=== PATIENT | female | born 1970 | race Caucasian/White ===

== ENCOUNTER 2019-02-11 09:50 | Outpatient (CLI) | payer MEDICAID, SELFPAY ==
--- NOTE | 2019-02-11 10:00 | MM_ITS ---
WS: [id number] BILATERAL DIGITAL SCREENING MAMMOGRAPHY WITH CAD CLINICAL INFORMATION: SCREENING HISTORY: Screening mammogram. No current complaints. COMPARISON: February 07, 2018 TECHNIQUE: Bilateral CC and MLO views. FINDINGS: The breasts are composed of heterogeneous fibroglandular density tissue, which can limit the detectio n of small underlying mass lesions. No suspicious mass, asymmetry, calcifications, or architectural d istortion. No evidence of malignancy. MM/[id number] IMPRESSION: BI-RADS: 1-Negative FOLLOW UP: 1 Year Follow-up Recommend return to annual screening mammography.
== END 2019-02-11 09:51 | disposition home or self-care (01) ==
LOC: RADSHAW 09:53
PROVIDERS: Family Provider Family Medicine; PCP Family Medicine; Visit Provider Family Medicine
DX: Z12.31 Encounter for screening mammogram for malignant neoplasm of breast (principal)
CPT/HCPCS: 77067

== ENCOUNTER → 2019-03-14 13:11 | Outpatient (BNVA) | payer MEDICAID, SELFPAY | PROVIDERS: Family Provider Family Medicine; PCP Family Medicine; Visit Provider Nurse Practitioner Psychiatric/Mental Health | DX: F20.0 Paranoid schizophrenia (principal); F33.1 Major depressive disorder, recurrent, moderate; F41.1 Generalized anxiety disorder; F71 Moderate intellectual disabilities | CPT/HCPCS: 99214 ==

== ENCOUNTER → 2019-05-29 07:39 | Outpatient (BNVA) | payer MEDICAID, SELFPAY | PROVIDERS: Family Provider Family Medicine; PCP Family Medicine; Visit Provider Nurse Practitioner Psychiatric/Mental Health | DX: F20.0 Paranoid schizophrenia (principal); F33.1 Major depressive disorder, recurrent, moderate; F41.1 Generalized anxiety disorder; F71 Moderate intellectual disabilities; F17.210 Nicotine dependence, cigarettes, uncomplicated; F60.3 Borderline personality disorder | CPT/HCPCS: 99214 ==

== ENCOUNTER → 2019-06-10 07:31 | Outpatient (BNVA) | payer MEDICAID, SELFPAY | PROVIDERS: Family Provider Family Medicine; PCP Family Medicine; Visit Provider Nurse Practitioner Psychiatric/Mental Health | DX: F20.0 Paranoid schizophrenia (principal); F33.1 Major depressive disorder, recurrent, moderate; F41.1 Generalized anxiety disorder; F71 Moderate intellectual disabilities | CPT/HCPCS: 99214 ==

== ENCOUNTER → 2019-06-16 07:44 | Outpatient (BNVA) | payer MEDICAID, SELFPAY | PROVIDERS: Family Provider Family Medicine; PCP Family Medicine; Visit Provider Nurse Practitioner Psychiatric/Mental Health | DX: F20.0 Paranoid schizophrenia (principal); F33.1 Major depressive disorder, recurrent, moderate; F41.1 Generalized anxiety disorder; F71 Moderate intellectual disabilities | CPT/HCPCS: 99214 ==

== ENCOUNTER → 2019-07-16 07:50 | Outpatient (BNVA) | payer MEDICAID, SELFPAY | PROVIDERS: Family Provider Family Medicine; PCP Family Medicine; Visit Provider Nurse Practitioner Psychiatric/Mental Health | DX: F20.0 Paranoid schizophrenia (principal); F33.1 Major depressive disorder, recurrent, moderate; F41.1 Generalized anxiety disorder; F71 Moderate intellectual disabilities | CPT/HCPCS: 99214 ==

== ENCOUNTER → 2019-08-25 07:41 | Outpatient (BNVA) | payer MEDICAID, SELFPAY | PROVIDERS: Family Provider Family Medicine; PCP Family Medicine; Visit Provider Nurse Practitioner Psychiatric/Mental Health | DX: F20.0 Paranoid schizophrenia (principal); F33.1 Major depressive disorder, recurrent, moderate; F41.1 Generalized anxiety disorder; F71 Moderate intellectual disabilities; F17.210 Nicotine dependence, cigarettes, uncomplicated | CPT/HCPCS: 99214 ==

== ENCOUNTER → 2019-10-03 07:46 | Outpatient (BNVA) | payer MEDICAID, SELFPAY | PROVIDERS: Family Provider Family Medicine; PCP Family Medicine; Visit Provider Nurse Practitioner Psychiatric/Mental Health | DX: F20.0 Paranoid schizophrenia (principal); F33.1 Major depressive disorder, recurrent, moderate; F41.1 Generalized anxiety disorder; F71 Moderate intellectual disabilities; F33.2 Major depressive disorder, recurrent severe without psychotic features | CPT/HCPCS: 99213 ==

== ENCOUNTER → 2019-11-07 08:13 | Outpatient (BNVA) | payer MEDICAID, SELFPAY | PROVIDERS: Family Provider Family Medicine; PCP Family Medicine; Visit Provider Nurse Practitioner Psychiatric/Mental Health | DX: F20.0 Paranoid schizophrenia (principal); F33.1 Major depressive disorder, recurrent, moderate; F41.1 Generalized anxiety disorder; F71 Moderate intellectual disabilities | CPT/HCPCS: 99214 ==

== ENCOUNTER → 2019-11-27 08:15 | Outpatient (BNVA) | payer MEDICAID, SELFPAY | PROVIDERS: Family Provider Family Medicine; PCP Family Medicine; Visit Provider Nurse Practitioner Psychiatric/Mental Health | DX: F20.0 Paranoid schizophrenia (principal); F33.1 Major depressive disorder, recurrent, moderate; F41.1 Generalized anxiety disorder; F71 Moderate intellectual disabilities | CPT/HCPCS: 99214 ==

== ENCOUNTER → 2020-01-22 08:16 | Outpatient (BNVA) | payer MEDICAID, SELFPAY | PROVIDERS: Family Provider Family Medicine; PCP Family Medicine; Visit Provider Nurse Practitioner Psychiatric/Mental Health | DX: F20.0 Paranoid schizophrenia (principal); F33.1 Major depressive disorder, recurrent, moderate; F41.1 Generalized anxiety disorder; F71 Moderate intellectual disabilities | CPT/HCPCS: 99214 ==

== ENCOUNTER → 2020-03-02 07:40 | Outpatient (BNVA) | payer MEDICAID, SELFPAY | PROVIDERS: Family Provider Family Medicine; PCP Family Medicine; Visit Provider Nurse Practitioner Psychiatric/Mental Health | DX: F20.0 Paranoid schizophrenia (principal); F33.1 Major depressive disorder, recurrent, moderate; F41.1 Generalized anxiety disorder; F71 Moderate intellectual disabilities | CPT/HCPCS: 99215 ==

== ENCOUNTER → 2020-03-19 09:23 | Outpatient (BNVA) | payer MEDICAID, SELFPAY | PROVIDERS: Family Provider Family Medicine; PCP Family Medicine; Visit Provider Nurse Practitioner Psychiatric/Mental Health | DX: F20.0 Paranoid schizophrenia (principal); F33.1 Major depressive disorder, recurrent, moderate; F41.1 Generalized anxiety disorder; F71 Moderate intellectual disabilities | CPT/HCPCS: 99214 ==

== ENCOUNTER → 2020-04-20 07:55 | Outpatient (BNVA) | payer MEDICAID, SELFPAY | PROVIDERS: Family Provider Family Medicine; PCP Family Medicine; Visit Provider Nurse Practitioner Psychiatric/Mental Health | DX: F20.0 Paranoid schizophrenia (principal); F33.1 Major depressive disorder, recurrent, moderate; F41.1 Generalized anxiety disorder; F71 Moderate intellectual disabilities | CPT/HCPCS: 99214 ==

== ENCOUNTER → 2020-06-01 10:08 | Outpatient (BNVA) | payer MEDICAID, SELFPAY | PROVIDERS: Family Provider Family Medicine; PCP Family Medicine; Visit Provider Nurse Practitioner Psychiatric/Mental Health | DX: F20.0 Paranoid schizophrenia (principal); F33.1 Major depressive disorder, recurrent, moderate; F41.1 Generalized anxiety disorder; F71 Moderate intellectual disabilities | CPT/HCPCS: 99214 ==

== ENCOUNTER 2020-07-09 12:29 | Outpatient (CLI) | payer MEDICAID, SELFPAY ==
--- NOTE | 2020-07-09 12:30 | USCV_ITS ---
Luc Yarbrough Age: 50 Gender: F : 1970 Exam Date: 07/09/2020 12:52 Ordering Phys: Nona Maddox APN Technologist: ELISHA Exam Location: [facility] [place] Indication: RLE PAIN AND SWELLING HISTORY: Lower extremity swelling. Lower extremity pain. PROCEDURES: Venous duplex imaging was performed in only the right lower extremity. The following venous structures were evaluated: common femoral vein, profunda vein, proximal portion of the greater saphenous vein, superficial femoral vein, and the popliteal vein. In addition, the posterior tibial and peroneal trunk were evaluated. Serial compression, augmentation maneuvers, and spectral Doppler flow evaluation were performed. FINDINGS: No evidence of DVT seen in any vessel visualized at this time. CONCLUSIONS No evidence of right lower extremity DVT. Curtis Shi MD (Electronically Signed) Final Date: 09 July 2020 15:57 S
== END 2020-07-09 12:30 | disposition home or self-care (01) ==
LOC: RAD 12:31
PROVIDERS: PCP Family Medicine; Visit Provider Nurse Practitioner Women's Health
DX: M79.661 Pain in right lower leg (principal); M79.89 Other specified soft tissue disorders
CPT/HCPCS: 93971

== ENCOUNTER → 2020-07-30 07:28 | Outpatient (BNVA) | payer MEDICAID, SELFPAY | PROVIDERS: PCP Family Medicine; Visit Provider Nurse Practitioner Psychiatric/Mental Health | DX: F20.0 Paranoid schizophrenia (principal); F33.1 Major depressive disorder, recurrent, moderate; F41.1 Generalized anxiety disorder; F71 Moderate intellectual disabilities | CPT/HCPCS: 99214 ==

== ENCOUNTER → 2020-09-03 07:24 | Outpatient (BNVA) | payer MEDICAID, SELFPAY | PROVIDERS: PCP Family Medicine; Visit Provider Nurse Practitioner Psychiatric/Mental Health | DX: F20.0 Paranoid schizophrenia (principal); F33.1 Major depressive disorder, recurrent, moderate; F41.1 Generalized anxiety disorder | CPT/HCPCS: 99214 ==

== ENCOUNTER → 2020-10-29 07:28 | Outpatient (BNVA) | payer MEDICAID, SELFPAY | PROVIDERS: PCP Family Medicine; Visit Provider Nurse Practitioner Psychiatric/Mental Health | DX: F20.0 Paranoid schizophrenia (principal); F33.1 Major depressive disorder, recurrent, moderate; F41.1 Generalized anxiety disorder; F71 Moderate intellectual disabilities | CPT/HCPCS: 99214 ==

== ENCOUNTER → 2020-12-03 08:39 | Outpatient (BNVA) | payer MEDICAID, SELFPAY | PROVIDERS: PCP Family Medicine; Visit Provider Nurse Practitioner Psychiatric/Mental Health | DX: F20.0 Paranoid schizophrenia (principal); F33.1 Major depressive disorder, recurrent, moderate; F41.1 Generalized anxiety disorder; F71 Moderate intellectual disabilities | CPT/HCPCS: 99214 ==

== ENCOUNTER → 2021-01-24 07:54 | Outpatient (BNVA) | payer MEDICAID, SELFPAY | PROVIDERS: PCP Family Medicine; Visit Provider Nurse Practitioner Psychiatric/Mental Health | DX: F20.0 Paranoid schizophrenia (principal); F33.1 Major depressive disorder, recurrent, moderate; F41.1 Generalized anxiety disorder; F71 Moderate intellectual disabilities | CPT/HCPCS: 99214 ==

== ENCOUNTER → 2021-04-27 07:23 | Outpatient (BNVA) | payer MEDICAID, SELFPAY | PROVIDERS: PCP Family Medicine; Visit Provider Nurse Practitioner Psychiatric/Mental Health | DX: F20.0 Paranoid schizophrenia (principal); F33.1 Major depressive disorder, recurrent, moderate; F41.1 Generalized anxiety disorder; F71 Moderate intellectual disabilities | CPT/HCPCS: 99214 ==

== ENCOUNTER → 2021-05-18 10:56 | Outpatient (BNVA) | payer MEDICAID, SELFPAY | PROVIDERS: PCP Family Medicine; Visit Provider Nurse Practitioner Psychiatric/Mental Health | DX: Z01.419 Encounter for gynecological examination (general) (routine) without abnormal findings (principal); Z79.899 Other long term (current) drug therapy | CPT/HCPCS: 80061; 83036; 87624 ==

== ENCOUNTER 2021-06-16 20:46 | Inpatient (IN) | payer MEDICAID, SELFPAY ==
[2021-06-16 20:59] VITALS: BP 142/80; PULSE 99; RESP 20; TEMP 36.9; O2SAT 95; BMI 44.6
[2021-06-16 21:48] LABS: Basophils % 0.3 %; Eosinophils # 0.1 10^3/uL (0.0-0.8); Eosinophils % 1.8 %; Hematocrit 39.1 % (37.0-47.0); Hemoglobin 12.6 g/dL (11.5-15.3); Lymphocytes # 1.4 10^3/uL (0.8-4.8); Mean Corpuscular HGB Conc 32.2 g/dL (30.0-36.0); Mean Corpuscular Hemoglobin 29.2 pg (28.0-34.0); Mean Corpuscular Volume 90.7 fl (81-99); Mean Platelet Volume 10.2 fL (7.4-10.4); Monocytes # 0.7 10^3/uL (0.2-0.9); Monocytes % 10.6 %; Neutrophils # 4.01 10^3/uL (1.8-7.7); Neutrophils % 64.1 %; Nucleated Red Blood Cells % 0 %; Platelet Count 256 10^3/cmm (130-400); Red Blood Count 4.31 10^6/uL (4.1-5.3); Red Cell Distribution Width 14.6 % (12.1-15.1); White Blood Count 6.3 10^3/uL (4.0-10.0)
--- NOTE | 2021-06-16 21:51 | W.ED.PSYCHS ---
HPI - Psych General: Chief Complaint: Psychiatric Symptoms Stated Complaint: Doesn't feel safe/having hurtful thoughts Time Seen by Provider: 06/16/21 21:09 Source: patient Mode of arrival: ambulatory Limitations: no limitations History of Present Illness: 51-year-old female who states she feels like there have been people out to get her she states that people came to her house looking for her brother and she is scared that someone may harm her. States she been having increasing depression she is tearful when talking to her she denies any suicidality but states that she is very depressed she wants to be admitted the psych mayorga denies any worsening improving factors. Associated symptoms: Reports depression Review of Systems Const: Denies: fever(s), chills, body aches or change in appetite Eyes: Denies: blurry vision or eye discomfort ENMT: Denies: throat pain or dental pain Card: Denies: chest pain Resp: Denies: dyspnea GI: Denies: abdominal pain, nausea, vomiting or diarrhea : Denies: dysuria Musc: Denies: neck pain or back pain Skin/Breast: Denies: rash Neuro: Denies: headache(s) Psych: Reports: depression and paranoia Jimbo/Lymph: Denies: easy bruising All/Imm: Denies: urticaria PFSH ED PFSH: Medical History (Updated 06/16/21 @ 22:25 by Ailyn Mak MD) Generalized anxiety disorder Hyperlipidemia Major depressive disorder, recurrent episode, moderate with anxious distress Moderate intellectual disabilities No pertinent past medical history neghx: htn,dm,thyroid,dvt/pe PCP: Zachary Paranoid schizophrenia PCOS (polycystic ovarian syndrome) Perimenopausal symptom she was started on estrogen to see if the s/s would improve but did not despite dose increases. Psychiatric care Surgical History H/O breast biopsy H/O oral surgery (~05/2016) Family History Mother Heart disease Hypertension Grandmother Hypertension Maternal grandmother Denies family history of Colon cancer Ovarian cancer Diabetes Hyperlipidemia Breast cancer Family history of thyroid problem Uterine cancer Stroke Physical Exam Const: COMMON NORMALS: patient oriented x3 and healthy appearing GENERAL APPEARANCE: anxious HENMT: COMMON NORMALS: normocephalic and atraumatic HEAD & SCALP: normocephalic and atraumatic Eye: COMMON NORMALS: Equal, round and reactive pupils present and EOMs intact bilaterally PUPIL: Yes Equal, round and reactive pupils present Neck/C-Spine: COMMON NORMALS: full ROM and supple Chest: COMMONS NORMALS: normal inspection of the chest and normal palpation of entire chest wall Resp: COMMON NORMALS: normal respiratory effort, No retractions, No use of accessory muscles and clear to auscultation bilaterally AUSCULTATION: clear to auscultation bilaterally Cardio: COMMON NORMALS: regular rate, regular rhythm and No murmurs present (Cardio) RATE: regular rate RHYTHM: regular rhythm GI: COMMON NORMALS: Normal to inspection, nondistended, normoactive bowel sounds present, Soft to palpation, non-tender and no masses PALPATION: Yes Soft to palpation Extremity: COMMON NORMALS: normal to inspection and full ROM Neuro: COMMON NORMALS: patient oriented x3, moves all extremities and no focal motor deficits Psych: COMMON NORMALS: mental status grossly normal, Normal thought process present and cooperative MOOD & AFFECT: Yes sad, Yes tearful and Yes fearful THOUGHT PROCESS: Normal thought process present THOUGHT CONTENT: No Suicidality present and No Homicidality present Skin: COMMON NORMALS: no rashes or lesions noted and no wounds GENERAL SKIN EXAM: no rashes or lesions noted Course Vital Signs: Vital signs: Vital Signs Temperature 98.4 F 06/16/21 20:59 Pulse Rate 99 06/16/21 20:59 Respiratory Rate 20 H 06/16/21 20:59 Blood Pressure 142/80 06/16/21 20:59 Pulse Oximetry 95 06/16/21 20:[address] [facility] - Psych Medical Decision Making Patient presents here with history of paranoid schizophrenia with increased paranoia and depression patient voluntarily wants to get help spoke to psychiatrist she is medically cleared and will admit to the psychiatric unit. Lab Data : 06/16/21 21:40 06/16/21 21:40 Laboratory Results WBC 6.3 10^3/uL (4.0-10.0) 06/16/21 21:40 RBC 4.31 10^6/uL (4.1-5.3) 06/16/21 21:40 Hgb 12.6 g/dL (11.5-15.3) 06/16/21 21:40 Hct 39.1 % (37.0-47.0) 06/16/21 21:40 MCV 90.7 fl (81-99) 06/16/21 21:40 MCH 29.2 pg (28.0-34.0) 06/16/21 21:40 MCHC 32.2 g/dL (30.0-36.0) 06/16/21 21:40 RDW 14.6 % (12.1-15.1) 06/16/21 21:40 Plt Count 256 10^3/cmm (130-400) 06/16/21 21:40 MPV 10.2 fL (7.4-10.4) 06/16/21 21:40 Neut % (Auto) 64.1 % 06/16/21 21:40 Lymph % (Auto) 23.0 % 06/16/21 21:40 [place] % (Auto) 10.6 % 06/16/21 21:40 Eos % (Auto) 1.8 % 06/16/21 21:40 Baso % (Auto) 0.3 % 06/16/21 21:40 Neut # (Auto) 4.01 10^3/uL (1.8-7.7) 06/16/21 21:40 Lymph # (Auto) 1.4 10^3/uL (0.8-4.8) 06/16/21 21:40 [place] # (Auto) 0.7 10^3/uL (0.2-0.9) 06/16/21 21:40 Eos # (Auto) 0.1 10^3/uL (0.0-0.8) 06/16/21 21:40 Baso # (Auto) 0.0 10^3/uL (0.0-0.1) 06/16/21 21:40 Nucleated RBC % (auto) 0 % 06/16/21:40 Nucleated RBCs # 0.0 /100WBC 06/16/21 21:40 Sodium 138 mmol/L (136-145) 06/16/21 21:40 Potassium 3.9 mmol/L (3.5-5.1) 06/16/21 21:40 Chloride 100 mmol/L (98-107) 06/16/21 21:40 Carbon Dioxide 26 mmol/L (22-29) 06/16/21 21:40 Anion Gap 15.9 (5-19) 06/16/21 21:40 BUN 9 mg/dL (6-20) 06/16/21 21:40 Creatinine 0.7 mg/dL (0.5-0.9) 06/16/21 21:40 GFR Calculation 87.9 mL/min (90-130) L 06/16/21 21:40 Glucose 141 mg/dL (65-115) H 06/16/21 21:40 Calculated Osmolality 287 mOsm/kg (285-295) 06/16/21 21:40 Calcium 9.7 mg/dL (8.5-10.5) 06/16/21 21:40 Total Bilirubin 0.2 mg/dL (0.15-1.2) 06/16/21 21:40 AST 21 U/L (0-32) 06/16/21 21:40 ALT 22 U/L (0-33) 06/16/21 21:40 Alkaline Phosphatase 92 IU/L (35-105) 06/16/21 21:40 Total Protein 7.5 g/dL (6.6-8.7) 06/16/21 21:40 Albumin 4.2 g/dL (3.5-5.2) 06/16/21 21:40 Globulin 3.3 g/dL (1.3-4.6) 06/16/21 21:40 Salicylates < 0.3 mg/dL (3-10) L 06/16/21 21:40 Urine Opiates Screen Negative ng/mL (Negative) 06/16/21 21:40 Acetaminophen < 5.0 ug/mL (10-30) L 06/16/21 21:40 Ur Barbiturates Screen Negative ng/mL (Negative) 06/16/21 21:40 Ur Phencyclidine Scrn Negative ng/mL (Negative) 06/16/21 21:40 Ur Amphetamines Screen Negative ng/mL (Negative) 06/16/21 21:40 U Benzodiazepines Scrn Negative ng/mL (Negative) 06/16/21 21:40 Urine Cocaine Screen Negative ng/mL (Negative) 06/16/21 21:40 U Marijuana (THC) Screen Negative ng/mL (Negative) 06/16/21 21:40 Ethyl Alcohol < 10 mg/dL (0-10) 06/16/21 21:40 Discharge Plan Discharge Patient Disposition: Admitted As Inpatient Clinical Impression: Depression, Paranoid schizophrenia Condition: Stable Coding Level of Care Code ED 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
[2021-06-16 22:07] LABS: Amphetamines Screen Urine Negative (Negative); Barbiturates Screen Urine Negative (Negative); Benzodiazepines Screen Urine Negative (Negative); Cocaine Screen Urine Negative (Negative); Opiate Screen Urine Negative (Negative); PCP Screen Urine Negative (Negative); THC Screen Urine Negative (Negative)
[2021-06-16 22:08] LABS: Alanine Aminotransferase 22 U/L (0-33); Albumin Level 4.2 g/dL (3.5-5.2); Alkaline Phosphatase 92 IU/L (35-105); Anion Gap 15.9 (5-19); Aspartate Amino Transferase 21 U/L (0-32); Blood Urea Nitrogen 9 mg/dL (6-20); Calcium 9.7 mg/dL (8.5-10.5); Carbon Dioxide 26 mmol/L (22-29); Chloride 100 mmol/L (98-107); Globulin 3.3 g/dL (1.3-4.6); Glomerular Filtration Rate 87.9 mL/min (90-130); Glucose 141 mg/dL (65-115); Osmolality Calculated 287 mOsm/kg (285-295); Potassium 3.9 mmol/L (3.5-5.1); Sodium 138 mmol/L (136-145); Total Bilirubin 0.2 mg/dL (0.15-1.2); Total Protein 7.5 g/dL (6.6-8.7)
[2021-06-16 22:24] LABS: Acetaminophen < 5.0 ug/mL (10-30); Alcohol Level < 10 mg/dL (0-10); Salicylate < 0.3 mg/dL (3-10)
[2021-06-17 01:03] VITALS: BP 126/71; PULSE 80; RESP 16; O2SAT 93
[2021-06-17 01:22] VITALS: BP 134/85; PULSE 80; RESP 17; TEMP 36.9; O2SAT 93
[2021-06-17] MEDS: hyDROXYzine 25 mg Capsule 50 MG PO (03:20)
[2021-06-17 06:00] VITALS: RESP 17
[2021-06-17] MEDS: blistex lip oint 7 gm Tube 1 APPLIC TOPICAL (08:18)
--- NOTE | 2021-06-17 10:25 | P.NPUHP_ITS ---
Providers/Chief Complaint Admitting Physician: Speedy Harris MD Primary Care Provider: Kirill Sharma MD Chief Complaint: Doesn't feel safe/having hurtful thoughts HPI NPU History of Present Illness Luc Yarbrough is a 51 year old female who was admitted through our emergency department with the following report: 51-year-old female who states she feels like there have been people out to get her she states that people came to her house looking for her brother and she is scared that someone may harm her.? States she been having increasing depression she is tearful when talking to her she denies any suicidality but states that she is very depressed she wants to be admitted the psych mayorga denies any worsening improving factors. Associated symptoms: Reports depression He was admitted to the neuropsychiatry unit for definitive treatment of these issues. She says that she has been more depressed recently. She wants to leave [facility] and moved to [place] where she has some friends. She tried to call her pentecostalism there and talked with the traveling secretary but could not get any phone numbers of her friends. The people at [facility] recommended a certain place but she does not know anything about it. She talked with her psychiatrist at the last visit about finding a different place with the people at [facility] had several concerns about her leaving which are noted in the note. They say that she does not believe to go on outings with the other residents. When her family comes to visit that she does not want to go out to eat with them. Patient says that her sister used to come and visit when she was living with her but he is now in a intermediate and she has not him. The patient does not like her sister's new boyfriend. She says that she does not want anything to do with her brother. They do not treat her well. She was worried that something bad would happen because today is 5 to the 13th. She periodically has difficulties with her roommate. She is reportedly paranoid and delusional about some things with her roommate. She did not talk about that today. Note from her psychiatrist in April of this year is below for context. Diagnosis (1) Paranoid schizophrenia: ?Status:?Chronic (2) Major depressive disorder, recurrent episode, moderate with anxious distress: ?Status:?Chronic (3) Generalized anxiety disorder: ?Status:?Chronic (4) Moderate intellectual disabilities: ?Status:?Chronic Psychiatry SOAP Note Time In: 08:15 Time Out: 08:40 Subjective Subjective: CHIEF COMPLAINT:? Okay RECENT/INTERVAL HISTORY:? 51 yr old female, and Kaye, [facility] er/wide area network administrator, at [facility], contacted today for tele- visit for medication management. -Sleep pattern reported sleeping at night. -Describes mood as I guess okay for right now, here awhile back, I went with one of the car tenders, they picked me up and told them I wanted to go to [place], then I decided not to, then there is the [facility], I wanted to see if I could live there, they had a big breakfast but I did not get up that early, the next day the power went off; I sit outside on the porch mostly when its nice out, but I don't like to be out in the sun much, then my room mate said something weird to me and I think she watches me, my brother told me to tell them to move me out. -Kaye reports I know she wants to move, I think that would be the worst t branden for her, I can hardly get her to leave to go to appointments, then she gets it in her head she wants to find a man, I told her she has to get out and about, there are times when I can get her to ride with me to [facility], I have to do her shopping at [facility], she doesn't want any part of it.? The room mate situation, they bicker back and forth, if I had a different option I would move room mates. -Nutritional intake reported as adequate, personal hygiene reported by Kaye as its so hard to get her to take the showers ; taking medications daily with Kaye stating she has not refused any of her medications. ? -Terrina denies suicidal ideation/plan, no homicidal ideation/plan, denies au ditory/visual hallucinations;? persecutory delusions with? paranoia noted. Objective Objective: MENTAL STATUS EXAMINATION: Vital Signs: Unable to assess due to tele-visit Appearance: Unable to assess due to tele-visit Behavior: Unable to assess due to tele-visit Gait: Unable to assess due to tele-visit Speech:? Varying volume and prosody Thought Process: [place] Thought Content: Denied suicidal ideation/plan, denied homicidal ideation/plan, denied auditory/ visual hallucinations; persecutory delusions with paranoia noted. Mood & Affect: Calm at first, then anxious and crying about wanting to leave, then calm again; unable to assess affect due to tele-visit Insight & Judgment: Limited Alert & Oriented: x 4 Fund of Knowledge:? Limited Language: Intact Recent & Remote Memory:? Appears intact; not formally tested Assesment & Plan Assessment: -Patient and Kaye, caregiver/wide area network administrator, at [facility],? contacted by this provider today via telephone for tele-visit due to safety precautions related to COVID-19 recommendations, consent for telephone visit obtained by patient, as patient is her own guardian. -Luc reports adequate sleep pattern, mood influenced by daily stressors, including her room mate and wanting to leave [facility], denies refusing her medications, appetite good, and when she started crying loudly on the phone today, I was able to verbally redirect, as in the past, verbal redirection was not feasible.? Kaye, caregiver/wide area network administrator at [facility] reports staff is able to verbally redirect Luc when she gets upset, does not believe that Luc would do very well if she moved out of [facility], as Kaye states Luc does not like to leave the facility to go shopping or out to eat with her family when they come and visit.? Kaye reports Luc's personal hygiene is a work in process, with constantly cues having to be given for patient to take a shower, as Luc continues to exhibit persecutory delusions with paranoia about her room mate, believes the room mate watches her. - Luc is responding well to medication regimen, will continue current medic ation regimen without changes today. -The potential benefits and risks of the plan outlined below was discussed with the patient, she was given opportunity to discuss and ask questions, and she is in agreement with the plan. DIAGNOSTICS: 03/15/18- HA1C 5.9, Lipid panel completed, Triglycerides 163 12/05/19: HA1C 5.9 05/10/20:? HA1C 6.5, Lipid panel completed, under care of PCP Dr Sharma 04/27/21:? Ordered HA1C and Lipid panel Plan: -Continue Lamictal 100 mg in morning and 200 mg at bedtime -Continue Zyprexa 10 mg twice per day -Continue Klonopin 0.5 mg in am and 0.5 mg at 9 pm -Continue Klonopin 1 mg daily as needed for anxiety -Continue Trazodone 100 mg at 9 pm -The risks, benefits, and side effects of the medication and treatment plan were explained to patient who expressed understanding. Patient? is encouraged to comply with all scheduled visits, including medication management, in order to maximize therapeutic outcomes. [facility] staff and patient are aware of the [facility] crisis hotline and the local emergency department and can access as necessary. -Follow up with patient in 3 months, in office, however, patient and the? residential facility, [facility], understand they may call or have patient return to clinic sooner as needed. Meds NPU Home Medications Medication Instructions Recorded Confirmed Last Taken Type acetaminophen 500 mg tablet 1,000 mg PO QID PRN tab 03/14/19 05/18/21 Unknown History (Tylenol Extra Strength) bismuth subsalicylate 262 mg/15 mL 524 mg PO QID PRN 03/14/19 05/18/21 Unknown History oral suspension (Pepto-Bismol) calcium carbonate 500 mg calcium 500 mg PO DAILY 03/14/19 05/18/21 Unknown History (1,250 mg) tablet docusate sodium 100 mg capsule 100 mg PO BID 03/14/19 05/18/21 Unknown History (Colace) gabapentin 300 mg capsule 300 mg PO .QHS cap 03/14/19 05/18/21 Unknown History guaifenesin 600 mg tablet, 600 mg PO Q12H PRN 03/14/19 05/18/21 Unknown History extended release 12 hr (Mucinex) magnesium hydroxide 400 mg/5 mL 30 ml PO .QHS PRN ml 03/14/19 05/18/21 Unknown History oral suspension (Milk of Magnesia) metformin 500 mg tablet 500 mg PO BID 03/14/19 05/18/21 Unknown History naproxen 500 mg tablet 500 mg PO BID PRN 03/14/19 05/18/21 Unknown History nitroglycerin 0.4 mg sublingual 0.4 mg SUBLINGUAL Q5M PRN 03/14/19 05/18/21 Unknown History tablet rosuvastatin 40 mg tablet (Crestor) 40 mg PO DAILY 03/14/19 05/18/21 Unknown History solifenacin 5 mg tablet (Vesicare) 5 mg PO DAILY 03/14/19 05/18/21 Unknown History spironolactone 25 mg tablet 25 mg PO DAILY 03/14/19 05/18/21 Unknown History camphor 4.7 %-eucalyptus oil 1.2 1 applic TOPICAL DAILY PRN 11/26/19 05/18/21 U nknown History %-menthol 2.6 % topical ointment (Vicks Vaporub) dibucaine 1 % topical ointment 1 applic TOPICAL DAILY PRN gm 11/26/19 05/18/21 Unknown History (Hemorrhoidal-Analgesic) famotidine 20 mg tablet 20 mg PO BID 11/26/19 05/18/21 Unknown History menthol 2.5 % topical gel (Icy Hot 1 applic TOPICAL DAILY PRN gm 11/26/19 05/18/21 Unknown History Pain Relieving) neomycin-bacitracn Zn-polymyxin 1 applic TOPICAL DAILY PRN 11/26/19 05/18/21 Unknown History 3.5 mg-500 unit-10,000 unit top oint (First Aid Antibiotic) nystatin 100,000 unit/gram topical 1 applic TOPICAL DAILY PRN 11/26/19 05/18/21 Unknown History powder clonazepam 1 mg tablet (Klonopin) 1 mg PO DAILY PRN #30 tab 09/03/20 05/18/21 Unknown Rx clonazepam 0.5 mg tablet (Klonopin) 0.5 mg PO BID #60 tab 04/27/21 05/18/21 Unknown Rx lamotrigine 200 mg tablet 200 mg PO .QHS #30 tab 04/27/21 05/18/21 Unknown Rx (Lamictal) lamotrigine 25 mg tablet (Lamictal) 50 mg PO .morning #60 tab 04/27/21 05/18/21 Unknown Rx olanzapine 10 mg tablet (Zyprexa) 10 mg PO BID #60 tab 04/27/21 05/18/21 Unknown Rx trazodone 100 mg tablet 100 mg PO .9 pm #30 tab 04/27/21 05/18/21 Unknown Rx norethindrone (contraceptive) 0.35 0.35 mg PO DAILY #84 tab 05/18/21 05/18/21 Unknown Rx mg tablet Allergies Allergy/AdvReac Type Severity Reaction Status Date / Time No Known Allergies Allergy Verified 05/18/21 10:00 PFS NPU PFSH: Medical History (Updated 06/16/21 @ 22:25 by Ailyn Mak MD) Generalized anxiety disorder Hyperlipidemia Major depressive disorder, recurrent episode, moderate with anxious distress Moderate intellectual disabilities No pertinent past medical history neghx: htn,dm,thyroid,dvt/pe PCP: Zachary Paranoid schizophrenia PCOS (polycystic ovarian syndrome) Perimenopausal symptom she was started on estrogen to see if the s/s would improve but did not despite dose increases. Psychiatric care Surgical History H/O breast biopsy H/O oral surgery (~05/2016) Family History Mother Heart disease Hypertension Grandmother Hypertension Maternal grandmother Denies family history of Colon cancer Ovarian cancer Diabetes Hyperlipidemia Breast cancer Family history of thyroid problem Uterine cancer Stroke Mental Status Exam MSE Comments: This is an obese female who appears younger than her stated age and is mildly distressed. She was tearful many times through the interview. She is not well groomed and dressed in hospital scrubs. Eye contact was fair. She was found in bed and snoring at 10:15 AM psychomotor activity mildly decreased. Speech is at a regular rate and rhythm, normal volume, good articulation, not pressured. Alert, oriented X3 Attention and concentration appear to be normal. Memory is intact Mood is depressed. Affect is tearful much of the time during the interview. Thought process is logical and goal-directed. Thought content: Denies auditory and visual hallucinations. No delusions or paranoia are noted. She reports she current suicidal ideation. Hdenies homicidal ideation. Fund of knowledge is probably diminished. Insight and judgment appear to be poor. Impulse control is poor. Vitals/I&O/Wt Last Vital Signs Temp 98.4 F 06/17/21 01:22 Pulse 80 06/17/21 01:22 Resp 17 06/17/21 06:00 BP 134/85 06/17/21 01:22 Pulse Ox 93 06/17/21 01:22 Weight last 48 hrs Weight 117.934 kg Data NPU : 06/16/21 21:40 06/16/21 21:40 A&P Assessment and plan (1) Generalized anxiety disorder: Status: Chronic (2) Paranoid schizophrenia: Status: Chronic (3) Major depressive disorder, recurrent episode, moderate with anxious distress: Status: Chronic (4) Moderate intellectual disabilities: Status: Chronic Plan This is a 51-year-old female with moderate intellectual disabilities and paranoid schizophrenia who comes in with suicidal ideation. Plan: 1. Continue current medication for now.. 2. Continue every 15 minute checks for safety. 3. Encourage individual, group and milieu therapies. 4. Encourage sober living treatment after discharge at the highest level of care to which she is willing to commit. 5. We will monitor for safety for herself in the community prior to discharge. Involuntary Hold Information 96 Hour Hold: 96 Hour Involuntary Admission: No Attestations NPU Medical Necessity Statement*: Inpatient hospitalization is medically necessary and the clinically appropriate intervention at this time. We will initiate medications and make changes as indicated. She will be in the hospital for over 2 midnights. 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
[2021-06-17 14:00] VITALS: BP 169/88; PULSE 77; RESP 18; TEMP 36.2; O2SAT 94
[2021-06-17] MEDS: naproxen 500 mg Tablet PO (15:06)
[2021-06-17] MEDS: OLANZapine 10 mg TABLET PO (17:02)
[2021-06-17] MEDS: docusate sodium 100 mg Capsule PO (17:02)
[2021-06-17] MEDS: metformin 500 mg Tablet PO (17:02)
[2021-06-17] MEDS: CLONazepam 0.5 mg Tablet PO (17:03)
[2021-06-17] MEDS: famotidine 20 mg Tablet PO (17:03)
[2021-06-17] MEDS: gabapentin 300 mg Capsule PO (20:31)
[2021-06-17] MEDS: trazodone 100 mg Tablet PO (20:31)
[2021-06-17] MEDS: lamoTRIgine 100 mg Tablet 200 MG PO (20:31)
[2021-06-17 20:49] VITALS: BP 142/80; PULSE 90; RESP 16; TEMP 36.5; O2SAT 93
[2021-06-18 06:00] VITALS: BP 136/73; PULSE 92; RESP 20; TEMP 36.7; O2SAT 93
[2021-06-18] MEDS: lamoTRIgine 25 mg Tablet 50 MG PO (06:40)
[2021-06-18] MEDS: docusate sodium 100 mg Capsule PO ×2 (08:29→17:22)
[2021-06-18] MEDS: famotidine 20 mg Tablet PO ×2 (08:29→17:22)
[2021-06-18] MEDS: OLANZapine 10 mg TABLET PO ×2 (08:30→17:22)
[2021-06-18] MEDS: metformin 500 mg Tablet PO ×2 (08:30→17:22)
[2021-06-18] MEDS: CLONazepam 0.5 mg Tablet PO ×2 (08:30→17:21)
[2021-06-18] MEDS: nystatin powder 15 gm Btl 1 APPLIC TOPICAL ×2 (08:31→17:22)
[2021-06-18] MEDS: atorvastatin 40 mg Tablet 80 MG PO (08:33)
[2021-06-18] MEDS: spironolactone 25 mg Tablet PO (08:33)
--- NOTE | 2021-06-18 09:44 | P.NPUPN_ITS ---
Subjective NPU Subjective: She said that she is glad that she came here because something bad would have happened to her if she had not. I could not figure out what that would have been. She seems to think there are people who want bad things to happen to her. Her brother and sister are the only family that she has still alive. They have not given her evidence of not wanting her to be alive but she thinks that she is a burden to them and they do not really care about her. Her brother lives near [place] and has only been to visit once. She has lived in [facility] for 15 years. Mental Status Exam MSE Comments: This is an obese female who appears younger than her stated age and is mildly distressed. She was tearful many times through the interview. She is not well groomed and dressed in hospital scrubs. Eye contact was fair. She was found in bed and snoring at 10:15 AM psychomotor activity mildly decreased. Speech is at a regular rate and rhythm, normal volume, good articulation, not pressured. Alert, oriented X3 Attention and concentration appear to be normal. Memory is intact Mood is depressed. Affect is tearful much of the time during the interview. Thought process is logical and goal-directed. Thought content: Denies auditory and visual hallucinations. It is unclear if t hese thoughts about something bad happening to her or delusional. She reports she current suicidal ideation. Hdenies homicidal ideation. Fund of knowledge is probably diminished. Insight and judgment appear to be poor. Impulse control is poor. Cognition: Patient Appearance: Appears Older than Age and Disheveled/Poor Hygiene Level of Consciousness: Awake and Alert Patient Cognition Impaired: No Ability to Follow Directions: Fair Patient Orientation (long list): Person, Place, Time and Name Comprehension Ability: Mild Impairment Hallucination Type: None Delusion Description: Not Present and Paranoid Ideation Thought Process: Flight of Ideas Affect: Affect Description: [place] and Depressed Behavior: Patient Behavior: Appropriate and Cooperative Speech Pattern: Clear Vitals/I&O/Wt Last Vital Signs Temp 98.0 F 06/18/21 06:00 Pulse 92 06/18/21 06:00 Resp 20 H 06/18/21 06:00 BP 136/73 06/18/21 06:00 Pulse Ox 93 06/18/21 06:00 06/17/21 06/18/21 06/18/21 22:59 06:59 14:59 Intake Total 480 / 880 Balance 480 / 880 Weight last 48 hrs Weight 117.934 kg Data NPU : 06/16/21 21:40 06/16/21 21:40 A&P Assessment and plan (1) Generalized anxiety disorder: Status: Chronic (2) Paranoid schizophrenia: Status: Chronic (3) Major depressive disorder, recurrent episode, moderate with anxious distress: Status: Chronic (4) Moderate intellectual disabilities: Status: Chronic Plan This is a 51-year-old female with moderate intellectual disabilities and paranoid schizophrenia who comes in with suicidal ideation. Plan: 1. Continue current medication for now.. 2. Continue every 15 minute checks for safety. 3. Encourage individual, group and milieu therapies. 4. Encourage sober living treatment after discharge at the highest level of care to which she is willing to commit. 5. We will monitor for safety for herself in the community prior to discharge. Involuntary Hold Information 96 Hour Hold: 96 Hour Involuntary Admission: No Attestations NPU Medical Necessity Statement*: Inpatient hospitalization is medically necessary and the clinically appropriate intervention at this time. We will initiate medications and make changes as indicated. 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
[2021-06-18 14:00] VITALS: BP 111/72; PULSE 100; RESP 22; TEMP 36.4; O2SAT 95
[2021-06-18] MEDS: hyDROXYzine 25 mg Capsule 50 MG PO (14:27)
[2021-06-18] MEDS: acetaminophen 325 mg Tablet 650 MG PO ×2 (17:32→21:21)
[2021-06-18 20:11] VITALS: BP 128/78; PULSE 86; RESP 20; TEMP 36.8; O2SAT 96
[2021-06-18] MEDS: trazodone 100 mg Tablet PO (20:38)
[2021-06-18] MEDS: lamoTRIgine 100 mg Tablet 200 MG PO (20:38)
[2021-06-18] MEDS: gabapentin 300 mg Capsule PO (20:38)
[2021-06-19 06:00] VITALS: BP 144/72; PULSE 98; RESP 18; TEMP 36.7; O2SAT 94; BMI 44.9
[2021-06-19] MEDS: lamoTRIgine 25 mg Tablet 50 MG PO (06:16)
[2021-06-19] MEDS: metformin 500 mg Tablet PO ×2 (08:23→16:24)
[2021-06-19] MEDS: spironolactone 25 mg Tablet PO (08:23)
[2021-06-19] MEDS: atorvastatin 40 mg Tablet 80 MG PO (08:23)
[2021-06-19] MEDS: CLONazepam 0.5 mg Tablet PO ×2 (08:23→20:05)
[2021-06-19] MEDS: famotidine 20 mg Tablet PO ×2 (08:23→20:04)
[2021-06-19] MEDS: docusate sodium 100 mg Capsule PO ×2 (08:23→20:05)
[2021-06-19] MEDS: OLANZapine 10 mg TABLET PO ×2 (08:24→20:04)
--- NOTE | 2021-06-19 09:27 | P.NPUPN_ITS ---
Subjective NPU Subjective: She has been in bed all morning. I finally woke her up at 10 AM. She says that she is not feel well this morning. Her leg hurts. She mumbled something about a chair last night. I asked her if she sat in a chair wrong last night. She then asked me if we would let her go back to her facility tomorrow. She then went back to sleep and I had to wake her up to finish the conversation. Mental Status Exam MSE Comments: This is an obese female who appears younger than her stated age and is no distressed. She was tearful many times through the interview. She was found in bed but not snoring at 10:00 AM psychomotor activity decreased. Speech is decreased rate and volume because I woke her up and she fell asleep while we were talking. Alert, oriented X3 Attention and concentration appear to be normal. Memory is intact Mood is depressed. Affect is mildly dysphoric. Thought process is logical and goal-directed. Thought content: Denies auditory and visual hallucinations. It is unclear if these thoughts about something bad happening to her or delusional. She denies suicidal ideation. Hdenies homicidal ideation. Fund of knowledge is probably diminished. Insight and judgment appear to be poor. Impulse control is poor. Cognition: Patient Appearance: Appears Older than Age and Disheveled/Poor Hygiene Level of Consciousness: Awake and Alert Patient Cognition Impaired: No Ability to Follow Directions: Fair Patient Orientation (long list): Person, Place, Name, Age and Birthday Comprehension Ability: Mild Impairment Hallucination Type: None Delusion Description: Not Present and Paranoid Ideation Thought Process: Disorganized Affect: Affect Description: Calm and Flat Behavior: Patient Behavior: Appropriate and Cooperative Speech Pattern: Appropriate and Clear Vitals/I&O/Wt Last Vital Signs Temp 98.0 F 06/19/21 06:00 Pulse 98 06/19/21 06:00 Resp 18 06/19/21 06:00 BP 144/72 06/19/21 06:00 Pulse Ox 94 06/19/21 06:00 Weight last 48 hrs Weight 118.569 kg Weight 118.569 kg Data NPU : 06/16/21 21:40 06/16/21 21:40 A&P Assessment and plan (1) Generalized anxiety disorder: Status: Chronic (2) Paranoid schizophrenia: Status: Chronic (3) Major depressive disorder, recurrent episode, moderate with anxious distress: Status: Chronic (4) Moderate intellectual disabilities: Status: Chronic Plan This is a 51-year-old female with moderate intellectual disabilities and paranoid schizophrenia who comes in with suicidal ideation. Plan: 1. Continue current medication for now.. 2. Continue every 15 minute checks for safety. 3. Encourage individual, group and milieu therapies. 4. Encourage sober living treatment after discharge at the highest level of care to which she is willing to commit. 5. We will monitor for safety for herself in the community prior to discharge. Involuntary Hold Information 96 Hour Hold: 96 Hour Involuntary Admission: No Attestations NPU Medical Necessity Statement*: Inpatient hospitalization is medically necessary and the clinically appropriate intervention at this time. We will initiate medications and make changes as indicated. Coding Level of Care Code Acute Post Acute Care Nurse for Carlita Varela Diagnoses Generalized anxiety disorder F41.1 Paranoid schizophrenia F20.0 Major depressive disorder, recurrent episode, moderate with anxious distress F33.1 Moderate intellectual disabilities F71
[2021-06-19 13:16] VITALS: BP 118/72; PULSE 86; RESP 18; TEMP 36.7; O2SAT 95
[2021-06-19] MEDS: lamoTRIgine 100 mg Tablet 200 MG PO (20:04)
[2021-06-19] MEDS: nystatin powder 15 gm Btl 1 APPLIC TOPICAL (20:05)
[2021-06-19] MEDS: trazodone 100 mg Tablet PO (20:05)
[2021-06-19] MEDS: gabapentin 300 mg Capsule PO (20:05)
[2021-06-19 22:00] VITALS: BP 122/85; PULSE 85; RESP 16; TEMP 36.7; O2SAT 93
[2021-06-20] MEDS: metformin 500 mg Tablet PO (05:55)
[2021-06-20] MEDS: lamoTRIgine 25 mg Tablet 50 MG PO (05:55)
[2021-06-20 06:00] VITALS: BP 118/69; PULSE 79; RESP 18; TEMP 36.7; O2SAT 89
[2021-06-20 07:24] LABS: Glucose Point of Care 107 mg/dL (70-110)
[2021-06-20] MEDS: docusate sodium 100 mg Capsule PO (09:25)
[2021-06-20] MEDS: atorvastatin 40 mg Tablet 80 MG PO (09:25)
[2021-06-20] MEDS: OLANZapine 10 mg TABLET PO (09:25)
[2021-06-20] MEDS: CLONazepam 0.5 mg Tablet PO (09:25)
[2021-06-20] MEDS: spironolactone 25 mg Tablet PO (09:26)
[2021-06-20] MEDS: famotidine 20 mg Tablet PO (09:26)
[2021-06-20] MEDS: acetaminophen 325 mg Tablet 650 MG PO (09:28)
--- NOTE | 2021-06-20 10:11 | W.PM.NPUDCS ---
Diagnoses at Discharge Discharge Diagnosis (1) Generalized anxiety disorder: Status: Chronic (2) Paranoid schizophrenia: Status: Chronic (3) Major depressive disorder, recurrent episode, moderate with anxious distress: Status: Chronic (4) Moderate intellectual disabilities: Status: Chronic Reason for Visit Reason for Visit: Doesn't feel safe/having hurtful thoughts Brief History: History of Present Illness Luc Yarbrough is a 51 year old female who was admitted through our emergency department with the following report: 51-year-old female who states she feels like there have been people out to get her she states that people came to her house looking for her brother and she is scared that someone may harm her.? States she been having increasing depression she is tearful when talking to her she denies any suicidality but states that she is very depressed she wants to be admitted the psych mayorga denies any worsening improving factors. Associated symptoms: Reports depression He was admitted to the neuropsychiatry unit for definitive treatment of these issues.? She says that she has been more depressed recently.? She wants to leave [facility] and moved to [place] where she has some friends.? She tried to call her episcopalian there and talked with the stenographer secretary but could not get any phone numbers of her friends.? The people at [facility] recommended a certain place but she does not know anything about it.? She talked with her psychiatrist at the last visit about finding a different place with the people at [facility] had several concerns about her leaving which are noted in the note.? They say that she does not believe to go on outings with the other residents.? When her family comes to visit that she does not want to go out to eat with them.? Patient says that her sister used to come and visit when she was living with her but he is now in a long-term and she has not him.? The patient does not like her sister's new boyfriend.? She says that she does not want anything to do with her brother.? They do not treat her well.? She was worried that something bad would happen because today is 5 to the 13th.? She periodically has difficulties with her roommate.? She is reportedly paranoid and delusional about some things with her roommate.? She did not talk about that today. Hospital Course Hospital Course She slowly acclimated to the individual, group and milieu therapies provided. She was continued on her outpatient medications with no changes. She tolerated these doses and showed steady improvement during her stay. She was able to contract for safety outside hospital prior to discharge. During the hospitalization, patient had routine laboratory studies which were within normal limits except for few outliers. Additionally there was a general medical evaluation which was also within normal limits and revealed no new acute processes. Discharge Summary: At the time of discharge, lethality was denied and psychosis was resolving. Mood and anxiety were well managed. Patient endorsed a plan to follow-up with the aftercare recommendations of the treatment team. Patient was evaluated and deemed to be absent credible lethality, and had achieved the maximum benefit from an inpatient hospitalization, so was discharged. Involuntary Hold Information 96 Hour Hold: 96 Hour Involuntary Admission: No Mental Status Exam MSE Comments: This is an obese female who appears younger than her stated age and is no distressed. She was tearful many times through the interview. She was found in the lunch room eating lunch at 8:30 AM psychomotor activity decreased. Speech is normal rate and volume Alert, oriented X3 Attention and concentration appear to be normal. Memory is intact Mood is depressed. Affect is dysphoric. Thought process is logical and goal-directed. Thought content: Denies auditory and visual hallucinations. It is apparent that these thoughts about something bad happening to her are delusional. She denies suicidal ideation. Hdenies homicidal ideation. Fund of knowledge is probably diminished. Insight and judgment appear to be poor. Impulse control is poor. Cognition: Patient Appearance: Disheveled/Poor Hygiene Level of Consciousness: Awake and Alert Patient Cognition Impaired: No Ability to Follow Directions: Fair Patient Orientation (long list): Person, Place, Name, Age and Birthday Comprehension Ability: Mild Impairment Hallucination Type: None Delusion Description: Not Present Thought Process: Appropriate Affect: Affect Description: Calm and Depressed Behavior: Patient Behavior: Appropriate and Cooperative Speech Pattern: Appropriate and Delayed Discharge Data Studies Completed and Pending: Laboratory Results WBC 6.3 10^3/uL (4.0- 10.0) 06/16/21 21:40 RBC 4.31 10^6/uL (4.1 -5.3) 06/16/21 21:40 Hgb 12.6 g/dL (11.5-1 5.3) 06/16/21 21:40 Hct 39.1 % (37.0-47.0 ) 06/16/21 21:40 MCV 90.7 fl (81-99) 06/16/21 21:40 MCH 29.2 pg (28.0-34. 0) 06/16/21 21:40 MCHC 32.2 g/dL (30.0-3 6.0) 06/16/21 21:40 RDW 14.6 % (12.1-15.1 ) 06/16/21 21:40 Plt Count 256 10^3/cmm (130 -400) 06/16/21 21:40 MPV 10.2 fL (7.4-10.4 ) 06/16/21 21:40 Neut % (Auto) 64.1 % 06/16/21 21:40 Lymph % (Auto) 23.0 % 06/16/21 21:40 [place] % (Auto) 10.6 % 06/16/21 21:40 Eos % (Auto) 1.8 % 06/16/21 21:40 Baso % (Auto) 0.3 % 06/16/21 21:40 Neut # (Auto) 4.01 10^3/uL (1.8 -7.7) 06/16/21 21:40 Lymph # (Auto) 1.4 10^3/uL (0.8- 4.8) 06/16/21 21:40 [place] # (Auto) 0.7 10^3/uL (0.2- 0.9) 06/16/21 21:40 Eos # (Auto) 0.1 10^3/uL (0.0- 0.8) 06/16/21 21:40 Baso # (Auto) 0.0 10^3/uL (0.0- 0.1) 06/16/21 21:40 Nucleated RBC % (a uto) 0 % 06/16/21 21:40 Nucleated RBCs # 0.0 /100WBC 06/16/21 21:40 Sodium 138 mmol/L (136-1 45) 06/16/21 21:40 Potassium 3.9 mmol/L (3.5-5 .1) 06/16/21 21:40 Chloride 100 mmol/L (98-10 7) 06/16/21 21:40 Carbon Dioxide 26 mmol/L (22-29) 06/16/21 21:40 Anion Gap 15.9 (5-19) 06/16/21 21:40 BUN 9 mg/dL (6-20) 06/16/21 21:40 Creatinine 0.7 mg/dL (0.5-0. 9) 06/16/21 21:40 GFR Calculation 87.9 mL/min (90-1 30) L 06/16/21 21:40 Glucose 141 mg/dL (65-115 ) H 06/16/21 21:40 POC Glucose 107 mg/dL (70-110 ) 06/20/21 07:21 Calculated Osmolal ity 287 mOsm/kg (285- 295) 06/16/21 21:40 Calcium 9.7 mg/dL (8.5-10 .5) 06/16/21 21:40 Total Bilirubin 0.2 mg/dL (0.15-1 .2) 06/16/21 21:40 AST 21 U/L (0-32) 06/16/21 21:40 ALT 22 U/L (0-33) 06/16/21 21:40 Alkaline Phosphata se 92 IU/L (35-105) 06/16/21 21:40 Total Protein 7.5 g/dL (6.6-8.7 ) 06/16/21 21:40 Albumin 4.2 g/dL (3.5-5.2 ) 06/16/21 21:40 Globulin 3.3 g/dL (1.3-4.6 ) 06/16/21 21:40 Salicylates < 0.3 mg/dL (3-10 ) L 06/16/21 21:40 Urine Opiates Scre en Negative ng/mL (N egative) 06/16/21 21:40 Acetaminophen < 5.0 ug/mL (10-3 0) L 06/16/21 21:40 Ur Barbiturates Sc reen Negative ng/mL (N egative) 06/16/21 21:40 Ur Phencyclidine S crn Negative ng/mL (N egative) 06/16/21 21:40 Ur Amphetamines Sc reen Negative ng/mL (N egative) 06/16/21 21:40 U Benzodiazepines Scrn Negative ng/mL (N egative) 06/16/21 21:40 Urine Cocaine Scre en Negative ng/mL (N egative) 06/16/21 21:40 U Marijuana (THC) Screen Negative ng/mL (N egative) 06/16/21 21:40 Ethyl Alcohol < 10 mg/dL (0-10) 06/16/21 21:40 Vitals: Last Vital Signs Temp 98.1 F 06/20/21 06:00 Pulse 79 06/20/21 06:00 Resp 18 06/20/21 06:00 BP 118/69 06/20/21 06:00 Pulse Ox 89 L 06/20/21 06:00 Discharge Plan Discharge Patient Disposition: Home Condition: Stable Prescriptions: Continued solifenacin [Vesicare] 5 mg tablet 5 mg PO DAILY 0RF spironolactone [Aldactone] 25 mg tablet 25 mg PO DAILY 0RF docusate sodium [Colace] 100 mg capsule 100 mg PO BID 0RF metformin 500 mg tablet 500 mg PO BID 0RF calcium carbonate 500 mg calcium (1,250 mg) tablet 500 mg PO DAILY 0RF gabapentin 300 mg capsule 300 mg PO .QHS 0RF rosuvastatin [Crestor] 40 mg tablet 40 mg PO DAILY 0RF bismuth subsalicylate [Pepto-Bismol] 262 mg/15 mL suspension 524 mg PO QID PRN0RF magnesium hydroxide [Milk of Magnesia] 400 mg/5 mL suspension 30 ml PO .QHS PRN0RF acetaminophen [Tylenol Extra Strength] 500 mg tablet 1,000 mg PO QID PRN (Reason: Pain) 0RF nitroglycerin 0.4 mg tablet, sublingual 0.4 mg SUBLINGUAL Q5M PRN0RF naproxen 500 mg tablet 500 mg PO BID PRN0RF guaifenesin [Mucinex] 600 mg tablet extended release 12hr 600 mg PO Q12H PRN0RF famotidine 20 mg tablet 20 mg PO BID 0RF Vicks Vaporub 4.7-1.2-2.6 % ointment 1 applic TOPICAL DAILY PRN0RF First Aid Antibiotic 3.5-500-10,000 [id number] ointment 1 applic TOPICAL DAILY PRN0RF dibucaine [Hemorrhoidal-Analgesic] 1 % ointment 1 applic TOPICAL DAILY PRN0RF Icy Hot Pain Relieving 2.5 % gel 1 applic TOPICAL DAILY PRN0RF Rx Instructions: Rub on shoulder area of pain prn nystatin 100,000 unit/gram powder 1 applic TOPICAL DAILY PRN0RF Rx Instructions: apply to affected area daily prn clonazepam [Klonopin] 1 mg tablet 1 mg PO DAILY PRN (Reason: anxiety) Qty: 30 3RF Rx Instructions: Take one tablet daily as needed for anxiety clonazepam [Klonopin] 0.5 mg tablet 0.5 mg PO BID Qty: 60 3RF Rx Instructions: Take one tablet in morning and 9 pm lamotrigine [Lamictal] 200 mg tablet 200 mg PO .QHS Qty: 30 4RF Rx Instructions: Take one tablet at bedtime lamotrigine [Lamictal] 25 mg tablet 50 mg PO .morning Qty: 60 3RF Rx Instructions: Take two tablets every morning olanzapine [Zyprexa] 10 mg tablet 10 mg PO BID Qty: 60 4RF Rx Instructions: Take one tablet twice per day trazodone 100 mg tablet 100 mg PO .9 pm Qty: 30 4RF Rx Instructions: Take one tablet at 9 pm norethindrone (contraceptive) 0.35 mg tablet 0.35 mg PO DAILY Qty: 84 3RF docusate sodium [Colace] 100 mg Capsule 100 mg PO BID 0RF Discharge Orders: Discharge Order (Routine); Ordered 06/20/21 Ordered By: Speedy Harris [place] [facility] [place] [facility] [place]Outside] (Appointment with Ness on July 20 at 11am) Kirill Sharma MD [Primary Care Provider] - Discharge Diet: Diabetic Discharge Activity: Resume usual activity Patient Instructions: Opioid Safety Discharge Attestations NPU Time Spent in Discharge Care*: less than 30 min Specific Discharge Activities: Specific discharge activities: educating patient, discussing with corrections caseworker/social workers/dc planners, documenting/other paperwork and evaluating patient/reviewing data Coding Level of Care Code Acute Chg FW DC note Diagnoses Generalized anxiety disorder F41.1 Paranoid schizophrenia F20.0 Major depressive disorder, recurrent episode, moderate with anxious distress F33.1 Moderate intellectual disabilities F71
[2021-06-20 11:47] VITALS: BP 118/69; PULSE 79; RESP 18; TEMP 36.7; O2SAT 92
--- NOTE | 2021-06-20 14:22 | PC.NURSE ---
Discharge instructions given to patient, appointments made. No further questions. Patient waiting on ride.
--- NOTE | 2021-06-20 14:31 | PC.NURSE ---
Discharged at 1425.
== END 2021-06-20 14:25 | disposition home or self-care (01) | DRG 885 ==
LOC: ER 22:25 → NP 06-17 06:41
PROVIDERS: Admitting Provider Psychiatry & Neurology Psychiatry; Emergency Provider Emergency Medicine; PCP Family Medicine; Visit Provider Psychiatry & Neurology Psychiatry
DX: F20.0 Paranoid schizophrenia (principal); Z68.41 Body mass index [BMI] 40.0-44.9, adult; F41.1 Generalized anxiety disorder; F71 Moderate intellectual disabilities; E66.9 Obesity, unspecified; Z79.891 Long term (current) use of opiate analgesic
CPT/HCPCS: 36416; 80053; 80306; 80307; 82962; 85025; 97150; 97165; 99285

== ENCOUNTER → 2021-07-20 10:38 | Outpatient (BNVA) | payer MEDICAID, SELFPAY | PROVIDERS: PCP Family Medicine; Visit Provider Nurse Practitioner Psychiatric/Mental Health | DX: F20.0 Paranoid schizophrenia (principal); F33.1 Major depressive disorder, recurrent, moderate; F41.1 Generalized anxiety disorder; F71 Moderate intellectual disabilities; Z79.899 Other long term (current) drug therapy | CPT/HCPCS: 99214 ==

== ENCOUNTER 2021-08-31 14:05 | Outpatient (CLI) | payer MEDICAID, SELFPAY ==
--- NOTE | 2021-08-31 14:18 | MM_ITS ---
WS: [id number] BILATERAL 3D TOMOSYNTHESIS DIGITAL SCREENING MAMMOGRAPHY WITH CAD CLINICAL INFORMATION: SCREENING HISTORY: Screening mammogram. No current complaints. COMPARISON: February 11, 2019 TECHNIQUE: Bilateral CC and MLO views. FINDINGS: Scattered fibroglandular densities bilaterally. No suspicious focal mass, asymmetry, calcifications, or architectural distortion. Incidental punctate calcifications. Ovoid asymmetric density measuring 6 mm best seen on the MLO view central LEFT breast anterior depth along the posterior nipple line. Rec ommend further evaluation with LEFT diagnostic mammography and ultrasound. RIGHT breast is unchanged and unremarkable. IMPRESSION: MM/[place] [id number] BI-RADS: 0-Incomplete: Need additional imaging evaluation FOLLOW UP: Need Additional Imaging Recommend LEFT breast diagnostic mammography and ultrasound for further evaluat ion.
== END 2021-08-31 14:06 | disposition home or self-care (01) ==
LOC: RAD 14:06
PROVIDERS: PCP Family Medicine; Visit Provider Family Medicine
DX: Z12.31 Encounter for screening mammogram for malignant neoplasm of breast (principal)
CPT/HCPCS: 77063; 77067

== ENCOUNTER 2021-09-30 10:50 | Outpatient (CLI) | payer MEDICAID, SELFPAY ==
--- NOTE | 2021-09-30 11:01 | MM_ITS ---
WS: [id number] LEFT 3D TOMOSYNTHESIS DIGITAL MAMMOGRAPHY WITH CAD CLINICAL INFORMATION: INCONCLUSIVE MAMMOGRAM COMPARISON: August 31, 2021 TECHNIQUE: 3 views of the left breast were obtained. FINDINGS: Scattered fibroglandular densities of the left breast. Previously described 6 mm ovoid central LEFT breast asymmetric density anterior depth not as well see n today. Ultrasound described below. ULTRASOUND BREAST LEFT TECHNIQUE: Ultrasound left breast focused area of concern. CLINICAL INFORMATION: INCONCLUSIVE MAMMOGRAM COMPARISON: None. FINDINGS: Ultrasound LEFT breast obtained from the 10 to 2:00 position. Tiny cystic lesion measuring 2-3 mm at the 12:00 position 6 cm from the nipple. No other suspicious abnormalities. No suspicious lesions to target for biopsy. Recommend return to annual screening mammography. MM/[place] [id number] IMPRESSION: BI-RADS: 2-Benign FOLLOW UP: 1 Year Follow-up Recommend return to annual screening mammography.
== END 2021-09-30 10:51 | disposition home or self-care (01) ==
LOC: RAD 10:51
PROVIDERS: PCP Family Medicine; Visit Provider Family Medicine
DX: R92.2 Inconclusive mammogram (principal)
CPT/HCPCS: 76642; 77061

== ENCOUNTER 2022-05-06 22:43 | Emergency (ER) | payer MEDICAID, SELFPAY ==
[2022-05-06 22:53] VITALS: BP 156/88; PULSE 91; RESP 20; TEMP 36.9; O2SAT 98; BMI 44.6
[2022-05-07] MEDS: oxyCODONE-APAP 5-325 mg Tablet 1 TAB PO (00:18)
--- NOTE | 2022-05-07 15:39 | ED.C_ITS ---
HPI - Psych General: Chief Complaint: Psychiatric Symptoms Stated Complaint: bilateral leg and knee pain Time Seen by Provider: 05/06/22 23:01 Source: patient History of Present Illness: 52 year old female with intellectual disability. She presents with bilateral knee pain. Her knee pain is chronic. She's been evaluated by her PCP for this, but not had X-rays or injections etcetera. She states that her knees hurt so bad at times, that she begins to get depressed and feel down. She is not homicidal or suicidal. She believes that they swell at times. She also asks for a soda. MD complaint: feels depressed and other Onset (ago): month(s) Duration: intermittent History of same: Yes Relieving factors: medication Exacerbating factors: other Context: other Associated psychiatric symptoms: depression Associated symptoms: Reports depression; Deny auditory hallucinations, visual hallucinations, delusions, homicidal ideation or suicidal ideation Review of Systems Const: Denies: fever(s) Card: Denies: chest pain Resp: Denies: dyspnea, productive cough or non-productive cough GI: Denies: abdominal pain or vomiting Psych: Reports: depression; Denies: visual hallucinations, auditory hallucinations, suicidal ideation or homicidal ideation PFS ED PFSH: Medical History (Updated 05/06/22 @ 23:59 by Norm Vee DO) Generalized anxiety disorder Hyperlipidemia Major depressive disorder, recurrent episode, moderate with anxious distress Moderate intellectual disabilities No pertinent past medical history neghx: htn,dm,thyroid,dvt/pe PCP: [facility]so[facility] schizophrenia PCOS (polycystic ovarian syndrome) Perimenopausal symptom she was started on estrogen to see if the s/s would improve but did not despite dose increases. Psychiatric care Surgical History H/O breast biopsy H/O oral surgery (~05/2016) Family History Mother Heart disease Hypertension Grandmother Hypertension Maternal grandmother Denies family history of Colon cancer Ovarian cancer Diabetes Hyperlipidemia Breast cancer Family history of thyroid problem Uterine cancer Stroke Physical Exam Const: COMMON NORMALS: no acute distress GENERAL APPEARANCE: cooperative and comfortable; not ill appearing HENMT: COMMON NORMALS: normocephalic and atraumatic HEAD & SCALP: normocephalic and atraumatic Eye: COMMON NORMALS: Equal, round and reactive pupils present and EOMs intact bilaterally PUPIL: Yes Equal, round and reactive pupils present Neck/C-Spine: COMMON NORMALS: full ROM Chest: CHEST: Yes Symmetrical chest wall rise Resp: COMMON NORMALS: normal respiratory effort, No retractions, No use of acc essory muscles and clear to auscultation bilaterally AUSCULTATION: clear to auscultation bilaterally Cardio: COMMON NORMALS: regular rate, regular rhythm and Peripheral pulses 2+ throughout RATE: regular rate RHYTHM: regular rhythm PERIPHERAL PULSES: Peripheral pulses 2+ throughout Extremity: NARRATIVE EXTREMITY EXAM: Examination of the bilateral knees reveals small effusions bilaterally. The knees are not warm here. there is no deformity. There is tenderness in the medial joint line bilaterally. She has full extension. Neuro: JYOTI COMA SCALE: document GCS findings Jyoti coma scale eye opening: Spontaneous [place] coma scale verbal response: Orientated [place] coma scale motor response: Obey commands Jyoti coma scale total score: 15 Psych: THOUGHT CONTENT: No delusions Course Vital Signs: Vital signs: Vital Signs Temperature 98.4 F 05/06/22 22:53 Pulse Rate 91 05/06/22 22:53 Respiratory Rate 20 H 05/06/22 22:53 Blood Pressure 156/88 05/06/22 22:53 Pulse Oximetry 98 05/06/22 22:53 MDM - Psych Medical Decision Making We are not able to do weight bearing knee films in the ER. These will be most helpful. Symptoms are likely coming from arthritic change given her bilateral effusions. She is non-toxic in appearance. This is a chronic problem. we will ask case management to refer her to orthopedics for evaluation. She is not suicidal or homicidal. Her affect is normal here, I see no reason for urgent/emergent Psychiatric evaluation. Discharge Plan Discharge Patient Disposition: Home Clinical Impression: Knee pain, bilateral Condition: Stable Prescriptions: New ketorolac 10 mg tablet 10 mg PO TID PRN (Reason: pain) Qty: 10 0RF No Action solifenacin [Vesicare] 5 mg tablet 5 mg PO DAILY spironolactone [Aldactone] 25 mg tablet 25 mg PO DAILY metformin 500 mg tablet 500 mg PO BID bismuth subsalicylate [Pepto-Bismol] 262 mg/15 mL suspension 524 mg PO QID PRN magnesium hydroxide [Milk of Magnesia] 400 mg/5 mL suspension 30 ml PO .QHS PRN acetaminophen [Tylenol Extra Strength] 500 mg tablet 1,000 mg PO QID PRN (Reason: Pain) nitroglycerin 0.4 mg tablet, sublingual 0.4 mg SUBLINGUAL Q5M PRN naproxen 500 mg tablet 500 mg PO BID PRN guaifenesin [Mucinex] 600 mg tablet extended release 12hr 600 mg PO Q12H PRN famotidine 20 mg tablet 20 mg PO BID Vicks Vaporub 4.7-1.2-2.6 % ointment 1 applic TOPICAL DAILY PRN First Aid Antibiotic 3.5-500-10,000 [id number]-[id number] ointment 1 applic TOPICAL DAILY PRN dibucaine [Hemorrhoidal-Analgesic] 1 % ointment 1 applic TOPICAL DAILY PRN Icy Hot Pain Relieving 2.5 % gel 1 applic TOPICAL DAILY PRN Rx Instructions: Rub on shoulder area of pain prn nystatin 100,000 unit/gram powder 1 applic TOPICAL DAILY PRN Rx Instructions: apply to affected area daily prn cetirizine 10 mg tablet 10 mg PO DAILY calcium carbonate-vitamin D3 [Oyster Shell Calcium-Vit D3] 500 mg-5 mcg (200 unit) tablet 1 tab PO BID clonazepam [Klonopin] 0.5 mg tablet 0.5 mg PO BID Qty: 60 3RF Rx Instructions: Take one tablet in morning and 9 pm clonazepam [Klonopin] 1 mg tablet 1 mg PO DAILY PRN (Reason: anxiety) Qty: 30 3RF Rx Instructions: Take one tablet daily as needed for anxiety lamotrigine [Lamictal] 200 mg tablet 200 mg PO BID Qty: 60 6RF Rx Instructions: Take one tablet twice per day olanzapine [Zyprexa] 15 mg tablet 15 mg PO BID Qty: 60 6RF Rx Instructions: Take one tablet twice per day trazodone 100 mg tablet 100 mg PO .9 pm Qty: 30 6RF Rx Instructions: Take one tablet at 9 pm norethindrone (contraceptive) 0.35 mg tablet See Rx Instructions .ROUTE .COMPLEX Qty: 84 0RF Dose Instruction: TAKE ONE TABLET BY MOUTH DAILY Rx Instructions: TAKE ONE TABLET BY MOUTH DAILY docusate sodium [Colace] 100 mg Capsule 100 mg PO BID Discharge Orders: Discharge ED (Routine); Ordered 05/06/22 Ordered By: Norm Vee Referrals: Kirill Sharma MD [Primary Care Provider] - 1-3 days César Draper DO [Physician] - 7-10 days Patient Instructions: Knee Pain (ED), Pain Management Activity Restrictions/Additional Instructions: Our rn field case manager will make an appointment with orthopedics for you. You should hear from them at the beginning of the week. In the meantime take medication scheduled. Do not use your naproxen while you are on this medicine. See your doctor next week about your depression symptoms Coding Level of Care Code ED Automobile Mechanic for Carlita Varela
--- NOTE | 2022-05-08 10:22 | DCPLANNER ---
Addendum entered by Kristen Vasquez 06/01/22 09:01: This appointment was rescheduled Addendum entered by Kristen Vasquez 05/09/22 10:42: Patient has a follow up appointment scheduled for Tuesday, May 31, 2022 at 10:[address] Rose at ortho. Original Note: workforce management manager had message to schedule a follow up appointment for patient with ortho. workforce management manager sent patients information to the front office staff at ortho. Patients information will be printed and reviewed. Clinic will call patient with appointment information.
== END 2022-05-07 01:55 | disposition home or self-care (01) ==
PROVIDERS: Emergency Provider Emergency Medicine; PCP Family Medicine
DX: M25.561 Pain in right knee (principal); M25.562 Pain in left knee; Z79.84 Long term (current) use of oral hypoglycemic drugs; E78.5 Hyperlipidemia, unspecified
CPT/HCPCS: 99283

== ENCOUNTER → 2022-06-19 15:06 | Outpatient (BNVA) | payer MEDICAID, SELFPAY | PROVIDERS: PCP Family Medicine; Visit Provider Specialist | DX: M25.561 Pain in right knee (principal); M25.562 Pain in left knee; M17.0 Bilateral primary osteoarthritis of knee | CPT/HCPCS: 20610; 73560; 73565; 99204; J1100; J2795; J3301 ==

== ENCOUNTER 2023-02-05 00:14 | Emergency (ER) | payer MEDICAID, SELFPAY ==
[2023-02-05 00:20] VITALS: BP 129/85; PULSE 94; TEMP 36.7; O2SAT 95
--- NOTE | 2023-02-05 00:30 | PC.NURSE ---
Called [facility] where patient resides to gather more information from staff. Staff on duty stated she is believes the other residents do not like her and are out to get her, she is upset with family and the owners of [facility]. Per Staff the patient does not communicate well and will change the subject multiple times.
--- NOTE | 2023-02-05 00:57 | W.ED.PSYCHS ---
HPI - Psych General: Chief Complaint: Psychiatric Symptoms Stated Complaint: depressed, wants NPU Time Seen by Provider: 02/05/23 00:16 Source: patient Mode of arrival: ambulatory Limitations: no limitations History of Present Illness: 52-year-old female who is a resident of [facility] she has a history of intellectual disability along with depression and paranoid schizophrenia. She states that she does believe that some people [facility] try to annoy her she states she has been feeling depressed she denies any suicidal or homicidal ideations. Associated symptoms: Reports depression Review of Systems Const: Denies: fever(s), chills, body aches or change in appetite ENMT: Denies: throat pain or dental pain Card: Denies: chest pain Resp: Denies: dyspnea GI: Denies: abdominal pain, nausea, vomiting or diarrhea : Denies: dysuria Musc: Denies: neck pain or back pain Skin/Breast: Denies: rash Neuro: Denies: headache(s) Psych: Reports: depression and paranoia PFS ED PFSH: Medical History (Updated 02/05/23 @ 01:06 by Ailyn Mak MD) Severe anxiety with panic Psychiatric care Perimenopausal symptom she was started on estrogen to see if the s/s would improve but did not despite dose increases. Hyperlipidemia PCOS (polycystic ovarian syndrome) No pertinent past medical history neghx: htn,dm,thyroid,dvt/pe PCP: Zach[facility] Moderate intellectual disabilities Major depressive disorder, recurrent episode, moderate with anxious distress Paranoid schizophrenia Surgical History H/O oral surgery (~05/2016) H/O breast biopsy Family History Mother Heart disease Hypertension Grandmother Hypertension Maternal grandmother Denies family history of Colon cancer Ovarian cancer Diabetes Hyperlipidemia Breast cancer Family history of thyroid problem Uterine cancer Stroke Physical Exam Const: COMMON NORMALS: no acute distress, patient oriented x3 and healthy appearing HENMT: COMMON NORMALS: normocephalic and atraumatic HEAD & SCALP: normocephalic and atraumatic Eye: COMMON NORMALS: conjunctivae normal CONJUNCTIVA: Yes conjunctivae normal Neck/C-Spine: COMMON NORMALS: full ROM and supple Chest: COMMONS NORMALS: normal inspection of the chest Resp: COMMON NORMALS: normal respiratory effort Cardio: COMMON NORMALS: regular rate, regular rhythm and No murmurs present (Cardio) RATE: regular rate RHYTHM: regular rhythm GI: COMMON NORMALS: Normal to inspection, nondistended, normoactive bowel sounds present, Soft to palpation, non-tender and no masses PALPATION: Yes Soft to palpation Extremity: COMMON NORMALS: normal to inspection and full ROM Neuro: COMMON NORMALS: patient oriented x3, moves all extremities and no focal motor deficits Psych: COMMON NORMALS: mental status grossly normal, Normal thought process present and cooperative MOOD & AFFECT: Yes depressed mood THOUGHT PROCESS: Normal thought process present Skin: COMMON NORMALS: no rashes or lesions noted and no wounds GENERAL SKIN EXAM: no rashes or lesions noted Course Vital Signs: Vital signs: Vital Signs Temperature 98.1 F 02/05/23 00:20 Pulse Rate 94 02/05/23 00:20 Blood Pressure 129/85 02/05/23 00:20 Pulse Oximetry 95 02/05/23 00:20 Oxygen Delivery Me thod Room Air 02/05/23 00:20 MDM - Psych Medical Decision Making Patient presents here with depression along with some paranoia she is not actively suicidal or homicidal. I had patient evaluated by Dr. Correia who does not believe she is a threat to herself or other he does not believe that she will benefit from inpatient therapy she is to follow-up with her outpatient psychiatrist will discharge her back to [facility]. Medical Records I reviewed the patient's medical records. No radiology studies performed this visit Discharge Plan Discharge Patient Disposition: Home Clinical Impression: Depression, Paranoid schizophrenia Condition: Stable Prescriptions: No Action solifenacin [Vesicare] 5 mg tablet 5 mg PO DAILY spironolactone [Aldactone] 25 mg tablet 25 mg PO DAILY metformin 500 mg tablet 500 mg PO BID bismuth subsalicylate [Pepto-Bismol] 262 mg/15 mL suspension 524 mg PO QID PRN magnesium hydroxide [Milk of Magnesia] 400 mg/5 mL suspension 30 ml PO .QHS PRN acetaminophen [Tylenol Extra Strength] 500 mg tablet 1,000 mg PO QID PRN (Reason: Pain) nitroglycerin 0.4 mg tablet, sublingual 0.4 mg SUBLINGUAL Q5M PRN naproxen 500 mg tablet 500 mg PO BID PRN guaifenesin [Mucinex] 600 mg tablet extended release 12hr 600 mg PO Q12H PRN famotidine 20 mg tablet 20 mg PO BID Vicks Vaporub 4.7-1.2-2.6 % ointment 1 applic TOPICAL DAILY PRN First Aid Antibiotic 3.5-500-10,000 [id number] ointment 1 applic TOPICAL DAILY PRN dibucaine [Hemorrhoidal-Analgesic] 1 % ointment 1 applic TOPICAL DAILY PRN Icy Hot Pain Relieving 2.5 % gel 1 applic TOPICAL DAILY PRN Rx Instructions: Rub on shoulder area of pain prn nystatin 100,000 unit/gram powder 1 applic TOPICAL DAILY PRN Rx Instructions: apply to affected area daily prn cetirizine 10 mg tablet 10 mg PO DAILY calcium carbonate-vitamin D3 [Oyster Shell Calcium-Vit D3] 500 mg-5 mcg (200 unit) tablet 1 tab PO BID lamotrigine [Lamictal] 200 mg tablet 200 mg PO BID Qty: 60 6RF Rx Instructions: Take one tablet twice per day trazodone 100 mg tablet 100 mg PO .9 pm Qty: 30 6RF Rx Instructions: Take one tablet at 9 pm norethindrone (contraceptive) 0.35 mg tablet See Rx Instructions .ROUTE .COMPLEX Qty: 84 0RF Dose Instruction: TAKE ONE TABLET BY MOUTH DAILY Rx Instructions: TAKE ONE TABLET BY MOUTH DAILY PATIENT WILL NEED AN APPOINTMENT FOR ANY FURTHER REFLLS!!!! quetiapine [Seroquel] 200 mg tablet 200 mg PO BID Qty: 60 2RF Rx Instructions: Take one tablet twice per day diazepam [Valium] 2 mg tablet 2 mg PO TID Qty: 90 2RF Rx Instructions: Take one tablet three times per day benztropine 0.5 mg tablet 0.5 mg PO BID Qty: 60 3RF Rx Instructions: Take one tablet twice per day docusate sodium [Colace] 100 mg Capsule 100 mg PO BID ketorolac 10 mg tablet 10 mg PO TID PRN (Reason: pain) Qty: 10 0RF Discharge Orders: Discharge ED (Routine); Ordered 02/05/23 Ordered By: Ailyn Mak Referrals: Kirill Sharma MD [Primary Care Provider] - 1-3 days Discharge Diet: Advance as tolerated Discharge Activity: Resume usual activity Patient Instructions: Depression (ED), Schizophrenia (ED) Coding Level of Care Code ED [facility] for Carlita Varela
== END 2023-02-05 01:28 | disposition home or self-care (01) ==
PROVIDERS: Emergency Provider Emergency Medicine; PCP Family Medicine
DX: F32.A Depression, unspecified (principal); F20.0 Paranoid schizophrenia; Z79.84 Long term (current) use of oral hypoglycemic drugs; E78.5 Hyperlipidemia, unspecified
CPT/HCPCS: 99283

== ENCOUNTER 2024-05-05 22:10 | Emergency (ER) | payer MEDICAID, SELFPAY ==
[2023-11-06 15:23] VITALS: BP 128/72; BMI 41.4
[2024-05-05 22:21] VITALS: BP 122/67; PULSE 63; RESP 18; TEMP 36.1; O2SAT 93; BMI 39.4
--- NOTE | 2024-05-05 22:29 | W.ED.PSYCHS ---
HPI - Psych General: Chief Complaint: Psychiatric Symptoms Stated Complaint: feels unsafe at home Time Seen by Provider: 05/05/24 22:12 History of Present Illness: 54-year-old female with a history of moderate intellectual disability, paranoid schizophrenia who presents to the emergency room from the [facility] with complaint of being scared. She arrived by ambulance. She says it is about to be May 06 and she is scared of the holidays. She denies any suicidal or homicidal ideations. Related Data Home Medications ?Medication ?Instructions ?Recorded ?Confirmed acetaminophen 500 mg tablet 1,000 mg PO QID PRN Pain 03/14/19 04/18/24 (Tylenol Extra Strength) bismuth subsalicylate 262 mg/15 mL 524 mg PO QID PRN 03/14/19 04/18/24 oral suspension (Pepto-Bismol) guaifenesin 600 mg tablet, 600 mg PO Q12H PRN 03/14/19 04/18/24 extended release 12 hr (Mucinex) magnesium hydroxide 400 mg/5 mL 30 ml PO .QHS PRN 03/14/19 04/18/24 oral suspension (Milk of Magnesia) metformin 500 mg tablet 500 mg PO BID 03/14/19 04/18/24 naproxen 500 mg tablet 500 mg PO BID PRN 03/14/19 04/18/24 nitroglycerin 0.4 mg sublingual 0.4 mg sublingual Q5M PRN 03/14/19 04/18/24 tablet solifenacin 5 mg tablet (Vesicare) 5 mg PO DAILY 03/14/19 04/18/24 spironolactone 25 mg tablet 25 mg PO DAILY 03/14/19 04/18/24 (Aldactone) camphor 4.7 %-eucalyptus oil 1.2 1 applic topical DAILY PRN 11/26/19 04/18/24 %-menthol 2.6 % topical ointment (Vicks Vaporub) dibucaine 1 % topical ointment 1 applic topical DAILY PRN 11/26/19 04/18/24 (Hemorrhoidal-Analgesic) famotidine 20 mg tablet 20 mg PO BID 11/26/19 04/18/24 menthol 2.5 % topical gel (Icy Hot 1 applic topical DAILY PRN 11/26/19 04/18/24 Pain Relieving) neomycin-bacitracn Zn-polymyxin 1 applic topical DAILY PRN 11/26/19 04/18/24 3.5 mg-500 unit-10,000 unit top oint (First Aid Antibiotic) nystatin 100,000 unit/gram topical 1 applic topical DAILY PRN 11/26/19 04/18/24 powder docusate sodium 100 mg capsule 100 mg PO BID 06/17/21 04/18/24 (Colace) calcium 500 mg (as 1 tab PO BID 07/20/21 04/18/24 carbonate)-vitamin D3 5 mcg (200 unit) tablet (Oyster Shell Calcium-Vitamin D3) cetirizine 10 mg tablet 10 mg PO DAILY 07/20/21 04/18/24 fluconazole 40 mg/mL oral 50 mg PO DAILY 04/18/24 04/18/24 suspension semaglutide 0.25 mg or 0.5 mg (2 mg SUBCUT .weekly 04/18/24 04/18/24 mg/3 mL) subcutaneous pen injector (Adynxx) Previous Rx's ?Medication ?Instructions ?Recorded ketorolac 10 mg tablet 10 mg PO TID PRN pain #10 tabs 05/06/22 norethindrone (contraceptive) 0.35 See Rx Instructions .Route 08/01/22 mg tablet .COMPLEX #84 ea benztropine 0.5 mg tablet 0.5 mg PO BID #60 tabs 01/22/24 lamotrigine 200 mg tablet 200 mg PO BID #60 tabs 01/22/24 (Lamictal) propranolol 10 mg tablet 10 mg PO BID #60 tabs 01/22/24 trazodone 100 mg tablet 100 mg PO BEDTIME PRN insomnia #30 01/22/24 tabs fluphenazine HCl 1 mg tablet 1 mg PO .10 am #30 tabs 03/03/24 clonazepam 1 mg tablet (Klonopin) 1 mg PO .4 pm #30 tabs 04/18/24 olanzapine 20 mg tablet 20 mg PO BEDTIME #30 tabs 04/21/24 Allergies Allergy/AdvReac Type Severity Reaction Status Date / Time No Known Allergies Allergy Verified 05/05/24 22:25 Review of Systems Narrative: Constitutional symptoms: Negative except as documented in HPI. Skin symptoms: Negative except as documented in HPI. Eye symptoms: Negative except as documented in HPI. ENMT symptoms: Negative except as documented in HPI. Respiratory symptoms: Negative except as documented in HPI. Cardiovascular symptoms: Negative except as documented in HPI. Gastrointestinal symptoms: Negative except as documented in HPI. Genitourinary symptoms: Negative except as documented in HPI. Musculoskeletal symptoms: Negative except as documented in HPI. Neurologic symptoms: Negative except as documented in HPI. Psychiatric symptoms: Negative except as documented in HPI. Endocrine symptoms: Negative except as documented in HPI. PFSH ED PFSH: Medical History (Updated 05/05/24 @ 22:29 by Nancy Roque MD) Mixed obsessional thoughts and acts Complaint of insomnia Severe anxiety with panic Psychiatric care Perimenopausal symptom she was started on estrogen to see if the s/s would improve but did not despite dose increases. Hyperlipidemia PCOS (polycystic ovarian syndrome) No pertinent past medical history neghx: htn,dm,thyroid,dvt/pe PCP: Zach[facility] Moderate intellectual disabilities Paranoid schizophrenia Surgical History H/O oral surgery (~05/2016) H/O breast biopsy Family History Mother Heart disease Hypertension Grandmother Hypertension Maternal grandmother Denies family history of Colon cancer Ovarian cancer Diabetes Hyperlipidemia Breast cancer Family history of thyroid problem Uterine cancer Stroke Physical Exam Narrative: EXAM NARRATIVE: General: Alert, no acute distress. Skin: Warm, dry. Head: Normocephalic, atraumatic. Neck: Supple, trachea midline. Eye: Extraocular movements are intact. Ears, nose, mouth and throat: mucosa moist. Cardiovascular: Regular, Normal peripheral perfusion. Respiratory: Lungs are clear to auscultation, respirations are non-labored, breath sounds are equal, Symmetrical chest wall expansion. Gastrointestinal: Soft, Nontender, Non distended Musculoskeletal: Normal ROM, no deformity. Neurological: Alert and oriented, No focal neurological deficit observed. Psychiatric: Cooperative, odd affect. Denies suicidal or homicidal ideation. She tells me she is afraid Course Vital Signs: Vital signs: Vital Signs Temperature 97 F L 05/05/24 22:21 Pulse Rate 63 05/05/24 22:21 Respiratory Rate 18 05/05/24 22:21 Blood Pressure 122/67 05/05/24 22:21 Pulse Oximetry 93 05/05/24 22:21 Oxygen Delivery Me thod Room Air 05/05/24 22:21 MDM - Psych Medical Decision Making Assessment and plan: Fear - Discharged home - Discussed plan with patient. Answered any questions. No radiology studies performed this visit Discharge Plan Discharge Patient Disposition: Home Clinical Impression: Fear Condition: Stable Prescriptions: No Action solifenacin [Vesicare] 5 mg tablet 5 mg PO DAILY spironolactone [Aldactone] 25 mg tablet 25 mg PO DAILY metformin 500 mg tablet 500 mg PO BID bismuth subsalicylate [Pepto-Bismol] 262 mg/15 mL suspension 524 mg PO QID PRN magnesium hydroxide [Milk of Magnesia] 400 mg/5 mL suspension 30 ml PO .QHS PRN acetaminophen [Tylenol Extra Strength] 500 mg tablet 1,000 mg PO QID PRN (Reason: Pain) nitroglycerin 0.4 mg tablet, sublingual 0.4 mg SUBLINGUAL Q5M PRN naproxen 500 mg tablet 500 mg PO BID PRN guaifenesin [Mucinex] 600 mg tablet extended release 12hr 600 mg PO Q12H PRN famotidine 20 mg tablet 20 mg PO BID Vicks Vaporub 4.7-1.2-2.6 % ointment 1 applic TOPICAL DAILY PRN First Aid Antibiotic 3.5-500-10,000 [id number]-[id number] ointment 1 applic TOPICAL DAILY PRN dibucaine [Hemorrhoidal-Analgesic] 1 % ointment 1 applic TOPICAL DAILY PRN Icy Hot Pain Relieving 2.5 % gel 1 applic TOPICAL DAILY PRN Rx Instructions: Rub on shoulder area of pain prn nystatin 100,000 unit/gram powder 1 applic TOPICAL DAILY PRN Rx Instructions: apply to affected area daily prn cetirizine 10 mg tablet 10 mg PO DAILY calcium carbonate-vitamin D3 [Oyster Shell Calcium-Vit D3] 500 mg-5 mcg (200 unit) tablet 1 tab PO BID benztropine 0.5 mg tablet 0.5 mg PO BID Qty: 60 6RF Rx Instructions: Take one tablet twice per day lamotrigine [Lamictal] 200 mg tablet 200 mg PO BID Qty: 60 6RF Rx Instructions: Take one tablet twice per day trazodone 100 mg tablet 100 mg PO BEDTIME PRN (Reason: insomnia) Qty: 30 6RF Rx Instructions: May take one tablet at bedtime as needed for sleep propranolol 10 mg tablet 10 mg PO BID Qty: 60 6RF Rx Instructions: Take one tablet twice per day fluphenazine HCl 1 mg tablet 1 mg PO .10 am Qty: 30 3RF Rx Instructions: Take one tablet at 10 am Ozempic 0.25 mg or 0.5 mg (2 mg/3 mL) pen injector SUBCUT .weekly fluconazole 40 mg/mL suspension for reconstitution 50 mg PO DAILY clonazepam [Klonopin] 1 mg tablet 1 mg PO .4 pm Qty: 30 3RF Rx Instructions: Take one tablet at 4 pm norethindrone (contraceptive) 0.35 mg tablet See Rx Instructions .ROUTE .COMPLEX Qty: 84 0RF Dose Instruction: TAKE ONE TABLET BY MOUTH DAILY Rx Instructions: TAKE ONE TABLET BY MOUTH DAILY PATIENT WILL NEED AN APPOINTMENT FOR ANY FURTHER REFLLS!!!! olanzapine 20 mg tablet 20 mg PO BEDTIME Qty: 30 2RF Rx Instructions: Take one tablet at bedtime docusate sodium [Colace] 100 mg Capsule 100 mg PO BID ketorolac 10 mg tablet 10 mg PO TID PRN (Reason: pain) Qty: 10 0RF Discharge Orders: Discharge ED (Routine); Ordered 05/05/24 Ordered By: Nancy Roque Referrals: Kirill Sharma MD [Primary Care Provider] - Discharge Diet: Usual diet Discharge Activity: Increase activity as tolerated Patient Instructions: Opioid Safety, Pain Management Activity Restrictions/Additional Instructions: Thank you for choosing [facility] for your healthcare needs today. Please realize this is an emergency room and that we are providing you with a medical screening exam and this may not be complete and all inclusive of all the testing and or work up that you may need to determine your ailment or severity of your illness. You have been screened and evaluated and felt safe for discharge. Health conditions do change or evolve sometimes and as such it is important that you follow up with your Primary Doctor to be re checked, 3-5 days is a general good time frame for follow up. You are always welcome to return to the ED for re assessment if your symptoms are worsening or you have new concerns Print Language: Czech Coding Level of Care Code ED [employer] for Carlita Varela
== END 2024-05-05 22:54 | disposition home or self-care (01) ==
PROVIDERS: Emergency Provider Emergency Medicine; PCP Family Medicine
DX: F40.8 Other phobic anxiety disorders (principal); Z79.84 Long term (current) use of oral hypoglycemic drugs; E78.5 Hyperlipidemia, unspecified
CPT/HCPCS: 99283

== ENCOUNTER 2024-05-07 10:33 | Outpatient (CLI) | payer MEDICAID, SELFPAY ==
[2023-11-06 15:23] VITALS: BP 128/72; BMI 41.4
--- NOTE | 2024-05-07 10:37 | MM_ITS ---
WS: [id number] BILATERAL 3D TOMOSYNTHESIS DIGITAL SCREENING MAMMOGRAPHY WITH CAD CLINICAL INFORMATION: SCREENING HISTORY: Screening mammogram. No current complaints. COMPARISON: 2021 TECHNIQUE: Bilateral CC and MLO views. FINDINGS: Scattered fibroglandular densities bilaterally. No suspicious focal mass, asymmetry, calcifications, or architectural distortion. No evidence of malignancy. A few incidental punctate calcifications. MM/MM scr tomosynthesis [id number] IMPRESSION: DENSITY: There are scattered areas of fibroglandular density. BI-RADS: 2 - Benign. FOLLOW UP: 1 Year Follow-up Recommend return to annual screening mammography.
== END 2024-05-07 10:34 | disposition home or self-care (01) ==
PROVIDERS: PCP Family Medicine; Visit Provider Family Medicine
DX: Z12.31 Encounter for screening mammogram for malignant neoplasm of breast (principal); R92.323 Mammographic fibroglandular density, bilateral breasts; R92.1 Mammographic calcification found on diagnostic imaging of breast
CPT/HCPCS: 77063; 77067

== ENCOUNTER 2024-09-13 21:43 | Emergency (ER) | payer MEDICAID, SELFPAY ==
--- OUTSIDE RECORDS SUMMARY | 2015-12-03 05:00 | XMS_ITS | Continuity of Care Document ---
Author Organization [facility] Address [id number] [address] Phone Care Team Providers Care Clinical Documentation Clerk Name Role Phone Unavailable Unavailable Unavailable Allergies, Adverse Reactions, Alerts Substance Reaction Status Criticality No Known allergies Medications Medication Instructions Dosage Effective Dates (start - stop) Status Comments cetirizine 10 mg tablet take 1 tablet by oral route every day 10 MG - Active Vesicare 5 mg tablet take 1 tablet by oral route every day 5 MG - Active Cymbalta 60 mg capsule,delayed release take 1 capsule by oral route every day - Active spironolactone 25 mg tablet take 1 tablet by oral route every day 25 MG - Active lisinopril 2.5 mg tablet take 1 tablet by oral route every day 2.5 MG - Active Risperdal 0.5 mg tablet take 2 tablet by oral route 2 times every day 1 MG - Active Geodon 80 mg capsule take 1 capsule by oral route 2 times every day with food 80 MG - Active ranitidine 150 mg tablet take 1 tablet by oral route 2 times every day - Active ranitidine 150 mg tablet take 1 tablet by oral route 2 times every day - Active metformin 500 mg tablet take 1 tablet by oral route 2 times every day with morning and evening meals 500 MG - Active Os-Sharan 500 + D3 500 mg (1,250 mg)-200 unit tablet - Active Risperdal 1 mg tablet take 1 tablet by oral route 2 times every day 1 MG - Active clonazepam 1 mg tablet take 1 tablet by oral route 3 times every day 1 MG - Active gabapentin 300 mg capsule take 1 capsule by oral route 3 times every day 300 MG - Active trazodone 50 mg tablet take 1 tablet by oral route 3 times every day after meals 50 MG - Active Lamictal 100 mg tablet take 1 tablet by oral route every day 100 MG - Active Crestor 40 mg tablet take 1 tablet by oral route every day 40 MG - Active Colace 100 mg capsule take 1 capsule by oral route every day at bedtime as needed 100 MG - Active TYLENOL (unknown strength) take 2 tablet by oral route every 6 hours as needed Not Available - Active CORICIDIN HBP FLU (unknown strength) Not Available - Active Aspir-81 81 mg tablet,delayed release take 1 tablet by oral route every day - Active Procedures Procedure Date Intraoral Periapical First Film Intraoral Periapical Each Additional Film Intraoral Periapical Each Additional Film Bitewings Two Films Panoramic Film Comprehensive Oral Evaluatio n New Or Established EDR Approval Note Advance Directives Directive Yes / No Effective Date File Name No Information Encounters Encounter Description Practice Location Reason(s) For Visit Diagnoses Date Provider Providers Copied on Encounter [facility], [id number] [facility], [place], [place], [id number], [place] tel:[phone] [facility] Encounter for dental exam and cleaning w/o abnormal findings No Information Family History Family Member Type Diagnosis Age At Onset Mother Problem (finding) Payers Payer name Insurance type Covered republican ID Authorcheo mclean(s) D Medicaid [id number] Social History Type Description Quantity Date Captured Comments Alcohol Use Details No Caffeine Use Details Unknown Tobacco Use Status Current non-smoker 15 Smoking Status Never smoker Non-Smoking Tobacco Use Details : No Details Available : No Details Available Sex Female Chief Complaint And Reason For Visit No Information Reason For Referral Reason For Referral No Information History Of Present Illness Encounter Date Complaint History Of Prese nt Illness No Information Functional Status Date Functional Assessmen t No Information Instructions Date Instruction Additional Infor mation No Information Assessments Type Assessment Date No Information Patient Care Teams Name Effective Dates (start - stop) Status Members No Information
[2023-11-06 15:23] VITALS: BP 128/72; BMI 41.4
[2024-09-13 21:49] VITALS: BP 145/82; PULSE 75; RESP 16; TEMP 36.7; O2SAT 96; BMI 41.1
[2024-09-13 22:16] LABS: Hematocrit 37.5 % (36-47); Hemoglobin 12.70 g/dL (11.27-16.99); Mean Corpuscular HGB Conc 33.9 g/dL (30-55); Mean Corpuscular Hemoglobin 30.4 pg (27-33); Mean Corpuscular Volume 89.7 fl (85-98); Nucleated Red Blood Cells % 0 %; Platelet Count 280 10^3/cmm (157-399); Red Blood Count 4.18 10^6/uL (3.85-5.65); White Blood Count 9.28 10^3/uL (3.29-11.43)
--- NOTE | 2024-09-13 22:30 | W.ED.PSYCHS ---
HPI - Psych General: Chief Complaint: Psychiatric Symptoms Stated Complaint: MHE fearful of being hurt Time Seen by Provider: 09/13/24 21:58 Source: patient and old records reviewed Mode of arrival: ambulatory History of Present Illness: Patient is a 54-year-old female with past medical history of severe anxiety, intellectual disability, and paranoid schizophrenia who presents the emergency department from lamp light due to paranoia. Reportedly, lamp light had called about the patient having hallucinations that people were trying to hurt her. Patient is very tangential with her conversation and has flight of ideas, but states that she knows that it is not her medications and that people are trying to hurt her for unknown reasons. She states that she can hear voices and sounds at her window every night. At this time she is not reporting any suicidal ideations or homicidal ideations, but states that people have homicidal ideations towards her. She denies any drug or alcohol use. Patient has been seen here in the emergency department before for other general fear, and has been evaluated in the emergency department before by psychiatry for similar in the past. Her last psychiatric admission here appears to be in June 2021. Patient has no other medical complaints at this time. She states that she is continue to take her medications at home. MD complaint: other (paranoia) History of same: Yes Associated psychiatric symptoms: delusions Associated symptoms: Reports auditory hallucinations, visual hallucinations and depression; Deny homicidal ideation or suicidal ideation Related Data Home Medications ?Medication ?Instructions ?Recorded ?Confirmed acetaminophen 500 mg tablet 1,000 mg PO QID PRN Pain 03/14/19 07/02/24 (Tylenol Extra Strength) bismuth subsalicylate 262 mg/15 mL 524 mg PO QID PRN 03/14/19 07/02/24 oral suspension (Pepto-Bismol) guaifenesin 600 mg tablet, 600 mg PO Q12H PRN 03/14/19 07/02/24 extended release 12 hr (Mucinex) magnesium hydroxide 400 mg/5 mL 30 ml PO .QHS PRN 03/14/19 07/02/24 oral suspension (Milk of Magnesia) metformin 500 mg tablet 500 mg PO BID 03/14/19 07/02/24 naproxen 500 mg tablet 500 mg PO BID PRN 03/14/19 07/02/24 nitroglycerin 0.4 mg sublingual 0.4 mg sublingual Q5M PRN 03/14/19 07/02/24 tablet solifenacin 5 mg tablet (Vesicare) 5 mg PO DAILY 03/14/19 07/02/24 camphor 4.7 %-eucalyptus oil 1.2 1 applic topical DAILY PRN 11/26/19 07/02/24 %-menthol 2.6 % topical ointment (Vicks Vaporub) dibucaine 1 % topical ointment 1 applic topical DAILY PRN 11/26/19 07/02/24 (Hemorrhoidal-Analgesic) famotidine 20 mg tablet 20 mg PO BID 11/26/19 07/02/24 menthol 2.5 % topical gel (Icy Hot 1 applic topical DAILY PRN 11/26/19 07/02/24 Pain Relieving) neomycin-bacitracn Zn-polymyxin 1 applic topical DAILY PRN 11/26/19 07/02/24 3.5 mg-500 unit-10,000 unit top oint (First Aid Antibiotic) nystatin 100,000 unit/gram topical 1 applic topical DAILY PRN 11/26/19 07/02/24 powder docusate sodium 100 mg capsule 100 mg PO BID 06/17/21 07/02/24 (Colace) calcium 500 mg (as 1 tab PO BID 07/20/21 07/02/24 carbonate)-vitamin D3 5 mcg (200 unit) tablet (Oyster Shell Calcium-Vitamin D3) cetirizine 10 mg tablet 10 mg PO DAILY 07/20/21 07/02/24 fluconazole 40 mg/mL oral 50 mg PO DAILY 04/18/24 07/02/24 suspension semaglutide 0.25 mg or 0.5 mg (2 mg SUBCUT .weekly 04/18/24 07/02/24 mg/3 mL) subcutaneous pen injector (Ozempic) Previous Rx's ?Medication ?Instructions ?Recorded ketorolac 10 mg tablet 10 mg PO TID PRN pain #10 tabs 05/06/22 norethindrone (contraceptive) 0.35 See Rx Instructions .Route 08/01/22 mg tablet .COMPLEX #84 ea benztropine 0.5 mg tablet 0.5 mg PO BID #60 tabs 06/04/24 lamotrigine 200 mg tablet 200 mg PO BID #60 tabs 06/04/24 (Lamictal) propranolol 10 mg tablet 10 mg PO BID #60 tabs 06/04/24 trazodone 100 mg tablet 100 mg PO BEDTIME PRN insomnia #30 06/04/24 tabs clonazepam 1 mg tablet (Klonopin) 1 mg PO .noon #30 tabs 07/02/24 fluphenazine HCl 2.5 mg tablet 2.5 mg PO QID #90 tabs 09/13/24 Allergies Allergy/AdvReac Type Severity Reaction Status Date / Time No Known Allergies Allergy Verified 09/13/24 21:54 Review of Systems General: Reports: 10 or more systems reviewed and unremarkable except in HPI and below Const: Denies: fever(s), chills or fatigue Eyes: Denies: change in vision ENMT: Denies: throat pain, ear or mastoid pain or nasal discharge Card: Denies: chest pain, palpitations, swelling of feet/ankles or lightheadedness Resp: Denies: dyspnea, productive cough or wheezing GI: Denies: abdominal pain, nausea, vomiting, diarrhea or constipation : Denies: flank pain, difficulty voiding, dysuria or urinary frequency Musc: Denies: neck pain, back pain or joint pain Skin/Breast: Denies: rash Neuro: Denies: headache(s), numbness in extremities or weakness in extremities Psych: Reports: anxiety, depression, paranoia, visual hallucinations and auditory hallucinations; Denies: suicidal ideation or homicidal ideation PFS ED PFSH: Medical History Mixed obsessional thoughts and acts Complaint of insomnia Severe anxiety with panic Psychiatric care Perimenopausal symptom she was started on estrogen to see if the s/s would improve but did not despite dose increases. Hyperlipidemia PCOS (polycystic ovarian syndrome) No pertinent past medical history neghx: htn,dm,thyroid,dvt/pe PCP: [facility] Moderate intellectual disabilities Paranoid schizophrenia Surgical History H/O oral surgery (~05/2016) H/O breast biopsy Family History Mother Heart disease Hypertension Grandmother Hypertension Maternal grandmother Denies family history of Colon cancer Ovarian cancer Diabetes Hyperlipidemia Breast cancer Family history of thyroid problem Uterine cancer Stroke Physical Exam Const: COMMON NORMALS: patient oriented x3 and alert ORIENTATION/CONSCIOUSNESS: Yes awake, Yes oriented to person, Yes oriented to place and Yes oriented to time HENMT: COMMON NORMALS: normocephalic, atraumatic and hearing grossly normal bilaterally HEAD & SCALP: normocephalic and atraumatic Eye: COMMON NORMALS: Equal, round and reactive pupils present, EOMs intact bilaterally and conjunctivae normal CONJUNCTIVA: Yes conjunctivae normal PUPIL: Yes Equal, round and reactive pupils present Neck/C-Spine: COMMON NORMALS: full ROM, supple and no JVD Resp: COMMON NORMALS: normal respiratory effort, No retractions, No use of accessory muscles and clear to auscultation bilaterally AUSCULTATION: clear to auscultation bilaterally Cardio: COMMON NORMALS: no JVD, regular rate, regular rhythm, No clicks present (Cardio), No murmurs present (Cardio) and No rub (Cardio) RATE: regular rate RHYTHM: regular rhythm GI: COMMON NORMALS: Normal to inspection, nondistended, normoactive bowel sounds present, Soft to palpation and non-tender AUSCULTATION: Yes normoactive bowel sounds PALPATION: Yes Soft to palpation RECTAL EXAM: deferred Extremity: COMMON NORMALS: normal to inspection, full ROM and capillary refill normal Neuro: COMMON NORMALS: patient oriented x3, moves all extremities, no focal motor deficits and no sensory deficits noted SENSORIUM/ORIENTATION: Yes alert, Yes oriented to person, Yes oriented to place and Yes oriented to time Psych: APPEARANCE: Yes grossly normal ATTITUDE: Yes paranoid ACTIVITY/MOTOR BEHAVIOR: Yes fidgeting THOUGHT PROCESS: Flight of ideas present and Tangential thought process present Skin: COMMON NORMALS: no rashes or lesions noted GENERAL SKIN EXAM: no rashes or lesions noted Course Vital Signs: Vital signs: Vital Signs Temperature 98.0 F 09/13/24 21:49 Pulse Rate 75 09/13/24 21:49 Respiratory Rate 16 09/13/24 21:49 Blood Pressure 145/82 09/13/24 21:49 Pulse Oximetry 96 09/13/24 21:49 Oxygen Delivery Me thod Room Air 09/13/24 21:49 MDM - Psych Medical Decision Making Patient presenting with signs and symptoms of paranoid schizophrenia which she has a history of. Has been seen here in the past for similar presentations of thinking people are trying to hurt her. Psychiatric screening labs were obtained, on exam she had flight of ideas and tangential conversation, patient also has a history of intellectual disability. Reviewing her medical history appears that she is on fluphenazine 2.5 mg, trazodone, propranolol, and clonazepam. Spoke with Dr. Correia, psychiatrist, who has seen the patient in the past. With her history of fear and similar presentations, we will increase her 2.5 mg fluphenazine and doses per day and have her see her outpatient psychiatrist and primary care for reevaluation. We agree and feel that patient is not a threat to herself or others, and can be safely discharged back. I discussed this plan with the patient, who also feels safe to go home and she will get a ride [facility] to [facility]. Lab Data 09/13/24 22:10 09/13/24 22:10 Laboratory Results WBC 9.28 10^3/uL (3.29-11.43) 09/13/24 22:10 RBC 4.18 10^6/uL (3.85-5.65) 09/13/24 22:10 Hgb 12.70 g/dL (11.27-16.99) 09/13/24 22:10 Hct 37.5 % (36-47) 09/13/24 22:10 MCV 89.7 fl (85-98) 09/13/24 22:10 MCH 30.4 pg (27-33) 09/13/24 22:10 MCHC 33.9 g/dL (30-55) 09/13/24 22:10 RDW 13.3 % (12.1-15.1) 09/13/24 22:10 Plt Count 280 10^3/cmm (157-399) 09/13/24 22:10 MPV 9.8 fL (7.4-10.4) 09/13/24 22:10 Neut % (Auto) 70.6 % 09/13/24 22:10 Lymph % (Auto) 18.9 % 09/13/24 22:10 Hickman % (Auto) 8.7 % 09/13/24 22:10 Eos % (Auto) 1.2 % 09/13/24 22:10 Baso % (Auto) 0.3 % 09/13/24 22:10 Neut # (Auto) 6.55 10^3/uL (1.8-7.7) 09/13/24 22:10 Lymph # (Auto) 1.8 10^3/uL (0.8-4.8) 09/13/24 22:10 Hickman # (Auto) 0.8 10^3/uL (0.2-0.9) 09/13/24 22:10 Eos # (Auto) 0.1 10^3/uL (0.0-0.8) 09/13/24 22:10 Baso # (Auto) 0.0 10^3/uL (0.0-0.1) 09/13/24 22:10 Nucleated RBC % (auto) 0 % 09/13/24 22:10 Nucleated RBCs # 0.0 /100WBC 09/13/24 22:10 Sodium 132 mmol/L (136-145) L 09/13/24 22:10 Potassium 3.4 mmol/L (3.5-5.1) L 09/13/24 22:10 Chloride 96 mmol/L (98-107) L 09/13/24 22:10 Carbon Dioxide 23 mmol/L (22-29) 09/13/24 22:10 Anion Gap 16.4 (5-19) 09/13/24 22:10 BUN 7 mg/dL (6-20) 09/13/24 22:10 Creatinine 0.6 mg/dL (0.5-0.9) 09/13/24 22:10 GFR Calculation 103.8 mL/min (90-130) 09/13/24 22:10 Glucose 112 mg/dL (65-115) 09/13/24 22:10 Calculated Osmolality 273 mOsm/kg (285-295) L 09/13/24 22:10 Calcium 9.5 mg/dL (8.5-10.5) 09/13/24 22:10 Total Bilirubin 0.3 mg/dL (0.15-1.2) 09/13/24 22:10 AST 20 U/L (0-32) 09/13/24 22:10 ALT 17 U/L (0-33) 09/13/24 22:10 Alkaline Phosphatase 98 U/L (35-105) 09/13/24 22:10 Total Protein 7.1 g/dL (6.6-8.7) 09/13/24 22:10 Albumin 3.9 g/dL (3.5-5.2) 09/13/24 22:10 Globulin 3.2 g/dL (1.3-4.6) 09/13/24 22:10 Salicylates < 0.3 mg/dL (3-10) L 09/13/24 22:10 Acetaminophen < 5.0 ug/mL (10-30) L 09/13/24 22:10 Ethyl Alcohol < 10 mg/dL (0-10) 09/13/24 22:10 No radiology studies performed this visit Discharge Plan Discharge Patient Disposition: Home Clinical Impression: Paranoid schizophrenia Condition: Stable Prescriptions: Changed fluphenazine HCl 2.5 mg tablet 2.5 mg PO QID Qty: 90 3RF Rx Instructions: Take one tablet at 8 am, 2 pm and 8 pm No Action solifenacin [Vesicare] 5 mg tablet 5 mg PO DAILY metformin 500 mg tablet 500 mg PO BID bismuth subsalicylate [Pepto-Bismol] 262 mg/15 mL suspension 524 mg PO QID PRN magnesium hydroxide [Milk of Magnesia] 400 mg/5 mL suspension 30 ml PO .QHS PRN acetaminophen [Tylenol Extra Strength] 500 mg tablet 1,000 mg PO QID PRN (Reason: Pain) nitroglycerin 0.4 mg tablet, sublingual 0.4 mg SUBLINGUAL Q5M PRN naproxen 500 mg tablet 500 mg PO BID PRN guaifenesin [Mucinex] 600 mg tablet extended release 12hr 600 mg PO Q12H PRN famotidine 20 mg tablet 20 mg PO BID Vicks Vaporub 4.7-1.2-2.6 % ointment 1 applic TOPICAL DAILY PRN First Aid Antibiotic 3.5-500-10,000 iq-[id number]-wady ointment 1 applic TOPICAL DAILY PRN dibucaine [Hemorrhoidal-Analgesic] 1 % ointment 1 applic TOPICAL DAILY PRN Icy Hot Pain Relieving 2.5 % gel 1 applic TOPICAL DAILY PRN Rx Instructions: Rub on shoulder area of pain prn nystatin 100,000 unit/gram powder 1 applic TOPICAL DAILY PRN Rx Instructions: apply to affected area daily prn cetirizine 10 mg tablet 10 mg PO DAILY calcium carbonate-vitamin D3 [Oyster Shell Calcium-Vit D3] 500 mg-5 mcg (200 unit) tablet 1 tab PO BID clonazepam [Klonopin] 1 mg tablet 1 mg PO .noon Qty: 30 3RF Rx Instructions: Take one tablet at noon Ozempic 0.25 mg or 0.5 mg (2 mg/3 mL) pen injector SUBCUT .weekly fluconazole 40 mg/mL suspension for reconstitution 50 mg PO DAILY norethindrone (contraceptive) 0.35 mg tablet See Rx Instructions .ROUTE .COMPLEX Qty: 84 0RF Dose Instruction: TAKE ONE TABLET BY MOUTH DAILY Rx Instructions: TAKE ONE TABLET BY MOUTH DAILY PATIENT WILL NEED AN APPOINTMENT FOR ANY FURTHER REFLLS!!!! benztropine 0.5 mg tablet 0.5 mg PO BID Qty: 60 6RF Rx Instructions: Take one tablet twice per day lamotrigine [Lamictal] 200 mg tablet 200 mg PO BID Qty: 60 6RF Rx Instructions: Take one tablet twice per day propranolol 10 mg tablet 10 mg PO BID Qty: 60 6RF Rx Instructions: Take one tablet twice per day trazodone 100 mg tablet 100 mg PO BEDTIME PRN (Reason: insomnia) Qty: 30 6RF Rx Instructions: May take one tablet at bedtime as needed for sleep docusate sodium [Colace] 100 mg Capsule 100 mg PO BID ketorolac 10 mg tablet 10 mg PO TID PRN (Reason: pain) Qty: 10 0RF Discharge Orders: Discharge ED (Routine); Ordered 09/13/24 Ordered By: Isreal Carr Referrals: Kirill Sharma MD [Primary Care Provider, Family Practice] Patient Instructions: Patient Portal & Kacey Instructions Activity Restrictions/Additional Instructions: Schizophrenia discharge plan Reason for visit: Paranoid schizophrenia with a known history. Today there are no suicidal or homicidal thoughts. Medication plan: - Fluphenazine (antipsychotic) dose: 2.5 mg by mouth four times a day (for example: morning, midday, evening, and bedtime). This stays within typical dosing ranges; total daily doses often start between 2.5?10 mg and can be adjusted based on symptoms and side effects. A benefit is often seen below 20 mg/day; if symptoms persist, doses can be carefully adjusted by the prescriber. - Do not stop fluphenazine suddenly. Stopping high doses all at once can cause nausea, vomiting, dizziness, and tremors; if a change is needed, it should be done slowly with the prescriber?s guidance. - Take the medicine at the same times every day. Missing doses makes relapse more likely. Staying on antipsychotic medication lowers the chance of relapse compared with stopping it. - If remembering pills is hard, ask about once?every?few?weeks long?acting injections as an option to help with adherence. How to take it safely: - Avoid alcohol and recreational drugs, which can worsen symptoms and side effects. - Be careful with heat exposure; fluphenazine can affect the body?s ability to handle heat. Stay hydrated and avoid overheating. - This medicine can make some people drowsy. Until the effects are known, be cautious with driving or operating machines. - Other medicines: Tell clinicians about all medicines and supplements. Some combinations can increase side effects like low blood pressure or anticholinergic effects (dry mouth, constipation). Possible side effects to watch for: - Movement symptoms: stiffness, restlessness, shaking, or painful muscle spasms (especially in younger people and men). These can happen early and may need treatment or dose changes. - Tardive dyskinesia: new or repeated mouth, tongue, face, or limb movements. Early detection is davis; report these right away. - Neuroleptic Malignant Syndrome (rare emergency): very high fever, stiff muscles, confusion, fast heartbeat, sweating, or changes in blood pressure. Seek emergency care immediately if these happen. - Sleepiness, dizziness, or changes in blood pressure; nausea, constipation, dry mouth; vision changes. - Hormone effects: breast changes, milk production, menstrual changes, or sexual side effects can occur due to prolactin changes. - Blood effects (rare but serious): low white blood cells can increase infection risk. Watch for fever, sore throat, mouth sores, or signs of infection, especially in the first few months or if there has been a low white count in the past. Blood counts may be checked if at risk. - Liver issues: yellowing of the skin or eyes, dark urine, right?upper?belly pain, or severe fatigue can signal liver problems. Stop the medicine and seek care if these occur. - If undergoing surgery or anesthesia, inform the team about fluphenazine use; doses of sedatives may need adjustment. Lab monitoring and follow?up: - Appointments: Keep the next mental health appointment as scheduled to review symptoms, side effects, and dosing. - Labs: Depending on history, clinicians may check blood counts and kidney/liver function during treatment, especially early on or during long?term use. - If a prior low white blood cell count or drug?related low counts exist, more frequent blood count checks are recommended at the start of therapy. Daily wellness plan: - Sleep: Aim for a regular sleep schedule. - Stress: Use coping skills that work (walking, music, relaxation, trusted support). - Structure: Keep a simple daily routine. Meaningful activities and connection to family/friends help recovery. - Supports: Stay connected with community mental health services, peer support, or case management as arranged. Good discharge planning and ongoing contact lower rehospitalization risk. Strict return and emergency precautions: Go to the emergency department or call emergency services now for: - New or worsening thoughts of harming self or others, or a plan to do so. - Signs of Neuroleptic Malignant Syndrome: very high fever, severe muscle stiffness, confusion, racing heartbeat, heavy sweating, or sudden blood pressure changes. - Severe allergic reaction: trouble breathing, swelling of face/lips/tongue, or hives. - Severe uncontrolled muscle spasms, oculogyric crisis (eyes rolling up), or trouble swallowing. - Fainting or very low blood pressure, chest pain, or a seizure. - Yellowing of the eyes/skin, dark urine, pale stools, or severe abdominal pain (possible liver injury). Call the clinic or seek urgent care soon (within 24 hours) for: - Fever, sore throat, mouth sores, or any signs of infection (possible low white blood cells). - New or worsening involuntary movements (face, tongue, limbs). - Marked restlessness, severe agitation, trouble sleeping, or distressing dreams. - Persistent constipation, trouble urinating, vision changes, or severe dry mouth. - Dizziness or falls, especially when standing up. Medication access and safety: - Take only as prescribed. If a dose is missed, take it when remembered unless it is close to the next dose. Do not double up. - Store at room temperature, away from heat and moisture, and out of reach of children. - : Discuss risks and benefits with the prescriber if or planning . Why staying on medication matters: - Continuing antipsychotic treatment greatly lowers the chance of relapse compared with stopping medication. Long?acting injectable options can help when remembering daily pills is hard. Print Language: Yakut Coding Level of Care Code ED Patient Accounts Clerk for Carlita Varela
[2024-09-13 22:31] LABS: Alanine Aminotransferase 17 U/L (0-33); Albumin Level 3.9 g/dL (3.5-5.2); Alkaline Phosphatase 98 U/L (35-105); Anion Gap 16.4 (5-19); Aspartate Amino Transferase 20 U/L (0-32); Blood Urea Nitrogen 7 mg/dL (6-20); Calcium 9.5 mg/dL (8.5-10.5); Carbon Dioxide 23 mmol/L (22-29); Chloride 96 mmol/L (98-107); Creatinine Clr Calc Pharmacy 127.7166; Globulin 3.2 g/dL (1.3-4.6); Glucose 112 mg/dL (65-115); Osmolality Calculated 273 mOsm/kg (285-295); Potassium 3.4 mmol/L (3.5-5.1); Sodium 132 mmol/L (136-145); Total Protein 7.1 g/dL (6.6-8.7)
[2024-09-13 22:32] LABS: Acetaminophen < 5.0 ug/mL (10-30); Alcohol Level < 10 mg/dL (0-10); Salicylate < 0.3 mg/dL (3-10)
--- NOTE | 2024-09-16 10:10 | PC.NURSE ---
I received a call from [facility] on Med/Surg asking for clarification on patient's Fluphenazine as the order was written for QID, however the times written in the Rx were only TID and the quantity was written for a 30 day supply but the actual quantity sent didn't match. I clarified order with Dr. Mak in ED for QID and to provide quantity of 30 day supply or 120 tablets. I provided this update to [facility] and they verbalize understanding and state they will update the Rx and fill it as ordered.
== END 2024-09-13 23:43 | disposition home or self-care (01) ==
PROVIDERS: Emergency Provider Physician Assistant; PCP Family Medicine
DX: F20.0 Paranoid schizophrenia (principal); Z79.84 Long term (current) use of oral hypoglycemic drugs; E78.5 Hyperlipidemia, unspecified
CPT/HCPCS: 36415; 80053; 80307; 85025; 99283

== ENCOUNTER → 2024-10-13 09:48 | Outpatient (BNVA) | payer OTHER, SELFPAY ==
[2024-09-23 15:12] VITALS: BP 132/83
[2024-09-23 15:16] VITALS: BMI 41.3
== END ==
PROVIDERS: PCP Family Medicine; Visit Provider Nurse Practitioner Psychiatric/Mental Health
DX: F20.0 Paranoid schizophrenia (principal); Z79.899 Other long term (current) drug therapy
CPT/HCPCS: 85007; 85027

== ENCOUNTER 2024-10-15 11:01 | Emergency (ER) | payer MEDICAID, SELFPAY ==
--- OUTSIDE RECORDS SUMMARY | 2015-12-03 05:00 | XMS_ITS | Continuity of Care Document ---
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, [place], [place], [id number], [place] tel:[phone] [facility] Encounter for dental exam and cleaning w/o abnormal findings No Information Family History Family Member Type Diagnosis Age At Onset Mother Problem (finding) Payers Payer name Insurance type Covered constitution party ID Authorcheo mclean(s) D Medicaid [id number] Social History Type Description Quantity Date Captured [...]
[2024-09-23 15:12] VITALS: BP 132/83
[2024-09-23 15:16] VITALS: BMI 41.3
[2024-10-15 11:19] VITALS: BP 154/80; PULSE 101; RESP 18; TEMP 36.7; O2SAT 98; BMI 39.4
[2024-10-15 11:34] LABS: Hematocrit 38.8 % (36-47); Hemoglobin 12.60 g/dL (11.27-16.99); Mean Corpuscular HGB Conc 32.5 g/dL (30-55); Mean Corpuscular Hemoglobin 29.8 pg (27-33); Mean Corpuscular Volume 91.7 fl (85-98); Nucleated Red Blood Cells % 0 %; Platelet Count 250 10^3/cmm (157-399); Red Blood Count 4.23 10^6/uL (3.85-5.65); White Blood Count 7.76 10^3/uL (3.29-11.43)
--- NOTE | 2024-10-15 11:49 | ED_ITS ---
HPI - Abdominal Pain 2 General: Chief Complaint: Abdominal Pain Stated Complaint: ABD Pain New Meds No BM in 4 days Time Seen by Provider: 10/15/24 11:22 History of Present Illness: 54-year-old female presents to the [facility] room with complaints of abdominal pain without having had a bowel movement in 4 days. No fever sweats chills no dysuria urgency or frequency. While she was here she dozed off a few times and required oxygen supplementation because she does have fairly severe sleep apnea. She is on closet pain 50 mg once a week. Staff had been advised that if she began having constipation if it would last for greater than 4 days decreased seen. Patient does have a PEG tube. No vomiting. Associated Symptoms: Denies chills, dysuria and fever(s) Related Data Home Medications ?Medication ?Instructions ?Recorded ?Confirmed acetaminophen 500 mg tablet 500 - 1,000 mg PO Q8H PRN 03/14/19 10/15/24 (Tylenol Extra Strength) Pain/fever bismuth subsalicylate 262 mg/15 mL 524 mg PO QID PRN u pset stomach or 03/14/19 10/15/24 oral suspension (Pepto-Bismol) diarrhea guaifenesin 600 mg tablet, 600 mg PO Q12H PRN allergie s 03/14/19 10/15/24 extended release 12 hr (Mucinex) magnesium hydroxide 400 mg/5 mL 30 ml PO .QHS PRN Cons tipation 03/14/19 10/15/24 oral suspension (Milk of Magnesia) metformin 500 mg tablet 500 mg PO BID 03/14/1910/15 nitroglycerin 0.4 mg sublingual 0.4 mg sublingual Q5M PRN Chest 03/14/19 10/15/24 tablet Pain solifenacin 5 mg tablet (Vesicare) 5 mg PO DAILY 03/1410/15/24 camphor 4.7 %-eucalyptus oil 1.2 1 applic topical MARCIA Y PRN 11/26/19 10/15/24 %-menthol 2.6 % topical ointment Congestion (Vicks Vaporub) dibucaine 1 % topical ointment 1 applic topical DAILY PRN 11/26/19 10/15/24 (Hemorrhoidal-Analgesic) Hemorrhoids famotidine 20 mg tablet 20 mg PO BID 10/21/20 09/10/ 25 menthol 2.5 % topical gel (Icy Hot 1 applic topical DA TOYIN PRN Pain 11/26/19 10/15/24 Pain Relieving) neomycin-bacitracn Zn-polymyxin 1 applic topical DAILY PRN Skin 11/26/19 10/15/24 3.5 mg-500 unit-10,000 unit top Irritation oint (First Aid Antibiotic) nystatin 100,000 unit/gram topical 1 applic topical DA TOYIN PRN Rash 11/26/19 10/15/24 powder calcium 500 mg (as 1 tab PO BID 07/20/21 carbonate)-vitamin D3 5 mcg (200 unit) tablet (Oyster Shell Calcium-Vitamin D3) cetirizine 10 mg tablet 10 mg PO DAILY 07/20/2110/06 semaglutide 0.25 mg or 0.5 mg (2 0.5 mg SUBCUT .weekly 04/18/24 10/15/24 mg/3 mL) subcutaneous pen injector ([email or web address]) clobetasol 0.05 % scalp solution See Rx Instructions . Route .COMPLEX 10/15/24 10/15/24 dextromethorphan-guaifenesin ER 60 1 tab PO Q12H PRN C ongestion 10/15/24 10/15/24 mg-1,200 mg tab,extend release,12hr (Mucinex DM) fluoride (sodium) 1.1 % dental 1 applic dental BID 11/2910/15/24 cream (Denta 5000 Plus) gabapentin 300 mg capsule 300 mg PO QPM 10/15/2410/15 menthol 2.5 mg lozenges (Cough See Rx Instructions .Ro starr .COMPLEX 10/15/24 10/15/24 Drops) naproxen sodium 220 mg tablet 220 mg PO Q12H PRN infla mmation or 10/15/24 10/15/24 pain norethindrone (contraceptive) 0.35 0.35 mg PO DAILY 10/15/24 mg tablet polyethylene glycol 3350 17 17 g PO DAILY 10/15/2411/29 gram/dose oral powder (Miralax) rosuvastatin 40 mg tablet 40 mg PO BEDTIME 10/15/24 spironolactone 50 mg tablet 50 mg PO DAILY 10/15/24 Previous Rx's ?Medication ?Instructions ?Recorded trazodone 100 mg tablet 100 mg PO BEDTIME PRN insomn ia #30 06/04/24 tabs benztropine 0.5 mg tablet 0.5 mg PO BID #60 tabs 09/22 docusate sodium 250 mg capsule 250 mg PO BID #60 caps 09/22/24 lamotrigine 200 mg tablet 200 mg PO BID #60 tabs 09/22 (Lamictal) clonazepam 0.5 mg tablet (Klonopin) 0.5 mg PO DIREC MAY #60 tabs 10/08/24 clozapine 100 mg tablet 100 mg PO DIRECTED #15 ta bs 10/08/24 clozapine 50 mg tablet 50 mg PO DIRECTED #12 tab s 10/08/24 cephalexin 500 mg capsule 500 mg PO TID 7 days #21 cap s 10/15/24 lactulose 10 gram/15 mL oral 30 ml PO Q2H PRN constipa tion 72 10/15/24 solution (Generlac) hours #1,080 mL Allergies Allergy/AdvReac Type Severity Reaction Status Date / Time No Known Allergies Allergy Verified 10/08/24 09:46 Review of Systems 2 Const: Denies: fever(s) or chills Card: Denies: chest pain Resp: Denies: dyspnea GI: Denies: abdominal pain : Denies: dysuria, urinary frequency or urinary urgency Musc: Denies: neck pain or back pain Skin/Breast: Denies: rash PFSH ED 2 PFSH: Medical History Mixed obsessional thoughts and acts Complaint of insomnia Severe anxiety with panic Psychiatric care Perimenopausal symptom she was started on estrogen to see if the s/s would improve but did not despite dose increases. Hyperlipidemia PCOS (polycystic ovarian syndrome) No pertinent past medical history neghx: htn,dm,thyroid,dvt/pe PCP: [facility] Moderate intellectual disabilities Paranoid schizophrenia Surgical History H/O oral surgery (~05/2016) H/O breast biopsy Family History Mother Heart disease Hypertension Grandmother Hypertension Maternal grandmother Denies family history of Colon cancer Ovarian cancer Diabetes Hyperlipidemia Breast cancer Family history of thyroid problem Uterine cancer Stroke Physical Exam 2 Const: COMMON NORMALS: no acute distress GENERAL APPEARANCE: cooperative and comfortable ORIENTATION/CONSCIOUSNESS: Yes awake, Yes oriented to person, Yes oriented to place and Yes oriented to time HENMT: COMMON NORMALS: normocephalic, atraumatic and hearing grossly normal bilaterally HEAD & SCALP: normocephalic and atraumatic Resp: COMMON NORMALS: normal respiratory effort, No retractions, No use of accessory muscles and clear to auscultation bilaterally AUSCULTATION: clear to auscultation bilaterally Cardio: COMMON NORMALS: regular rate, regular rhythm and No murmurs present (Cardio) RATE: regular rate RHYTHM: regular rhythm GI: COMMON NORMALS: Soft to palpation and No hepatosplenomegaly present A USCULTATION: Yes normoactive bowel sounds PALPATION: Yes Soft to palpation, No Tenderness to palpation present (GI), No Guarding due to palpation present (GI) and Yes No hepatosplenomegaly present Extremity: COMMON NORMALS: normal to inspection, capillary refill normal, no clubbing, cyanosis or edema, no calf tenderness and no pedal edema Neuro: SENSORIUM/ORIENTATION: Yes oriented to person, Yes oriented to place and Yes oriented to time Skin: COMMON NORMALS: no rashes or lesions noted GENERAL SKIN EXAM: no rashes or lesions noted Course 2 Vital Signs: Vital signs: Vital Signs Temperature 98.0 F 10/15/24 11:19 Pulse Rate 91 10/15/24 13:35 Respiratory Rate 18 10/15/24 11:19 Blood Pressure 146/89 10/15/24 13:35 Pulse Oximetry 95 10/15/24 13:35 Oxygen Delivery Me thod Room Air 10/15/24 11:19 MDM - Abdominal Pain Medical Decision Making acute abd series shows constipation. Incidental finding of cystitis. Lactulose to releive constpaition. recommend starting miralax 8.5 grams BID amd stopping ducolax. Cephalexin for cystitis. Lab Data 10/15/24 11:28 10/15/24 11:28 Labs/Radiology: Radiology Impressions Chest/Abdomen X-ray 10/15/24 11:50 Impression: 1. Cardiomegaly and atherosclerosis. 2. Large amount of fecal material in the colon. 3. Right lateral abdominal bulging. Laboratory Results WBC 7.76 10^3/uL (3.29-11.43) 10/15/24 11: RBC 4.23 10^6/uL (3.85-5.65) 10/15/24 11:28 Hgb 12.60 g/dL (11.27-16.99) 10/15/24 11:28 Hct 38.8 % (36-47) 10/15/24 11:28 MCV 91.7 fl (85-98) 10/15/24 11:28 MCH 29.8 pg (27-33) 10/15/24 11: MCHC 32.5 g/dL (30-55) 10/15/24 11: RDW 13.4 % (12.1-15.1) 10/15/24 11:28 Plt Count 250 10^3/cmm (157-399) 10/15/24 11:28 MPV 9.8 fL (7.4-10.4) 10/15/24 11: Neut % (Auto) 72.7 % 10/15/24 11: Lymph % (Auto) 17.3 % 10/15/24 11: [place] % (Auto) 8.0 % 10/15/24 11: Eos % (Auto) 1.2 % 10/15/24 11: Baso % (Auto) 0.3 % 10/15/24 11: Neut # (Auto) 5.65 10^3/uL (1.8-7.7) 10/15/24 11:28 Lymph # (Auto) 1.3 10^3/uL (0.8-4.8) 10/15/24 11:28 [place] # (Auto) 0.6 10^3/uL (0.2-0.9) 10/15/24 11: Eos # (Auto) 0.1 10^3/uL (0.0-0.8) 10/15/24 11:28 Baso # (Auto) 0.0 10^3/uL (0.0-0.1) 10/15/24 11:28 Nucleated RBC % (auto) 0 % 10/15/24 11:28 Nucleated RBCs # 0.0 /100WBC 10/15/24 11:28 Sodium 140 mmol/L (136-145) 10/15/24 11:28 Potassium 3.8 mmol/L (3.5-5.1) 10/15/24 11:28 Chloride 103 mmol/L (98-107) 10/15/24 11:28 Carbon Dioxide 25 mmol/L (22-29) 10/15/24 11:28 Anion Gap 15.8 (5-19) 10/15/24 11:28 BUN 7 mg/dL (6-20) 10/15/24 11:28 Creatinine 0.7 mg/dL (0.5-0.9) 10/15/24 11:28 GFR Calculation 86.9 mL/min (90-130) L 10/15/24 11:28 Glucose 116 mg/dL (65-115) H 10/15/24 11:28 Calculated Osmolality 289 mOsm/kg (285-295) 10/15/24 11:28 Calcium 9.9 mg/dL (8.5-10.5) 10/15/24 11:28 Total Bilirubin 0.4 mg/dL (0.15-1.2) 10/15/24 11:28 AST 17 U/L (0-32) 10/15/24 11:28 ALT 15 U/L (0-33) 10/15/24 11:28 Alkaline Phosphatase 96 U/L (35-105) 10/15/24 11:28 Total Protein 7.3 g/dL (6.6-8.7) 10/15/24 11:28 Albumin 4.0 g/dL (3.5-5.2) 10/15/24 11:28 Globulin 3.3 g/dL (1.3-4.6) 10/15/24 11:28 Lipase 20 U/L (13-60) 10/15/24 11:28 Urine Color Yellow (Yellow) 10/15/24 12:38 Urine Appearance Clear (CLEAR) 10/15/24 12:38 Urine pH 7.0 (5-7) 10/15/24 12:38 Ur Specific Gervais 1.022 (1.005-1.030) 10/15/24 12:38 Urine Protein Negative (Negative) 10/15/24 12:38 Urine Glucose (UA) Negative (Normal) 10/15/24 12:38 Urine Ketones Trace (Negative) 10/15/24 12:38 Urine Blood Negative (Negative) 10/15/24 12:38 Urine Nitrate Negative (Negative) 10/15/24 12:38 Urine Bilirubin Negative (Negative) 10/15/24 12:38 Urine Urobilinogen 1.0 mg/dL (Negative) 10/15/24 12:38 Ur Leukocyte Esterase 2+ (Negative) A 10/15/24 12:38 Urine RBC 0-2 /hpf (0-2) 10/15/24 12:38 Urine WBC 21-50 /hpf (0-5) H 10/15/24 12:38 Ur Squamous Epith Cells 0-5 /hpf (0-5) 10/15/24 12:38 Amorphous Sediment Not Reportable 10/15/24 12:38 Urine Bacteria None seen /hpf (NONE) 10/15/24 12:38 Hyaline Casts 0-4 /lpf H 10/15/24 12:38 All radiology interpretation(s) finalized by discharge Discharge Plan Discharge Patient Disposition: Home Clinical Impression: Constipation, Cystitis Condition: Stable Prescriptions: New lactulose [Generlac] 10 gram/15 mL solution 30 ml PO Q2H PRN (Reason: constipation) 3 Days Qty: 1080 0RF Rx Instructions: until desired laxative effect cephalexin 500 mg capsule 500 mg PO TID 7 Days Qty: 21 0RF No Action solifenacin [Vesicare] 5 mg tablet 5 mg PO DAILY metformin 500 mg tablet 500 mg PO BID bismuth subsalicylate [Pepto-Bismol] 262 mg/15 mL suspension 524 mg PO QID PRN (Reason: upset stomach or diarrhea) magnesium hydroxide [Milk of Magnesia] 400 mg/5 mL suspension 30 ml PO .QHS PRN (Reason: Constipation) acetaminophen [Tylenol Extra Strength] 500 mg tablet 500 - 1,000 mg PO Q8H PRN (Reason: Pain/fever) nitroglycerin 0.4 mg tablet, sublingual 0.4 mg SUBLINGUAL Q5M PRN (Reason: Chest Pain) guaifenesin [Mucinex] 600 mg tablet extended release 12hr 600 mg PO Q12H PRN (Reason: allergies) famotidine 20 mg tablet 20 mg PO BID Vicks Vaporub 4.7-1.2-2.6 % ointment 1 applic TOPICAL DAILY PRN (Reason: Congestion) First Aid Antibiotic 3.5-500-10,000 fm-eteg-pilm ointment 1 applic TOPICAL DAILY PRN (Reason: Skin Irritation) dibucaine [Hemorrhoidal-Analgesic] 1 % ointment 1 applic TOPICAL DAILY PRN (Reason: Hemorrhoids) Icy Hot Pain Relieving 2.5 % gel 1 applic TOPICAL DAILY PRN (Reason: Pain) Rx Instructions: Rub on shoulder area of pain prn nystatin 100,000 unit/gram powder 1 applic TOPICAL DAILY PRN (Reason: Rash) Rx Instructions: apply to affected area daily prn cetirizine 10 mg tablet 10 mg PO DAILY calcium carbonate-vitamin D3 [Oyster Shell Calcium-Vit D3] 500 mg-5 mcg (200 unit) tablet 1 tab PO BID docusate sodium 250 mg capsule 250 mg PO BID Qty: 60 3RF benztropine 0.5 mg tablet 0.5 mg PO BID Qty: 60 6RF lamotrigine [Lamictal] 200 mg tablet 200 mg PO BID Qty: 60 6RF Ozempic 0.25 mg or 0.5 mg (2 mg/3 mL) pen injector 0.5 mg SUBCUT .weekly Rx Instructions: clonazepam [Klonopin] 0.5 mg tablet 0.5 mg PO DIRECTED Qty: 60 3RF Rx Instructions: Take one tablet by mouth at 4 pm. May also take one tablet daily as needed for panic attacks. clozapine 50 mg tablet 50 mg PO DIRECTED Qty: 12 0RF Rx Instructions: Day 5: 50 mg in morning and evening Day 6: 50 mg in morning and 75 mg in evening Day 7: 50 mg in morning and 100 mg in evening Day 8: 75 mg in morning and 100 mg in evening clozapine 100 mg tablet 100 mg PO DIRECTED Qty: 15 0RF Rx Instructions: Day 9: 100 mg in morning and 100 mg in evening Day 10: 100 mg in morning and 125 mg in evening Day 11: 100 mg in morning and 150 mg in evening Day 12: 125 mg in morning and 150 mg in evening Day 13: 150 mg in morning and 150 mg in evening Day 14: 150 mg in morning and 150 mg in evening trazodone 100 mg tablet 100 mg PO BEDTIME PRN (Reason: insomnia) Qty: 30 6RF naproxen sodium 220 mg Tablet 220 mg PO Q12H PRN (Reason: inflammation or pain) gabapentin 300 mg Capsule 300 mg PO QPM dextromethorphan-guaifenesin [Mucinex DM] 60-1,200 mg Tablet Extended Release 12 Hr 1 tab PO Q12H PRN (Reason: Congestion) polyethylene glycol 3350 [Miralax] 17 gram/dose Powder 17 g PO DAILY clobetasol 0.05 % Solution See Rx Instructions .ROUTE .COMPLEX Rx Instructions: Apply to scalp sparingly at bedtime as needed. Not to exceed 1-2 drops. spironolactone 50 mg Tablet 50 mg PO DAILY rosuvastatin 40 mg Tablet 40 mg PO BEDTIME fluoride (sodium) [Denta 5000 Plus] 1.1 % Cream 1 applic DENTAL BID Cough Drops 2.5 mg Lozenge See Rx Instructions .ROUTE .COMPLEX Rx Instructions: May keep at bedside. norethindrone (contraceptive) 0.35 mg tablet 0.35 mg PO DAILY Discharge Orders: Discharge ED (Routine); Ordered 10/15/24 Ordered By: Mariano Ayon Referrals: Kirill Sharma MD [Primary Care Provider, Family Practice] Patient Instructions: Opioid Safety, Pain Management, Patient Portal & Kacey Instructions Activity Restrictions/Additional Instructions: Thank you for choosing [facility] for your healthcare needs today. It is very important that you follow up as instructed or that you return to the Emergency Department should you have concerns or if your condition changes or worsens in any way. Emergency department visits are focused on emergent conditions, in some cases you may require further evaluation on an outpatient basis. You were seen in the emergency room with complaints of abdominal discomfort you have a mild bladder infection additionally has some constipation recommend you use lactulose as prescribed to relieve the constipation for long-term management of constipation recommend stopping and Duca locks and starting MiraLAX half a capful twice a day. This can be increased to adjust before results. (Please note that included in your discharge packet is information concerning opioid safety and pain management. This information is given to all patients were discharged from the ER regardless of their discharge diagnosis or the medicines they usually take or are prescribed.) Print Language: Czech Coding Level of Care Code ED Development Specialist for Carlita Varela
--- NOTE | 2024-10-15 11:49 | PC.PHAR ---
Pt is from [facility]. Paperwork says Nadeen Jama.
--- NOTE | 2024-10-15 11:50 | XR_ITS ---
WS: [id number] Acute abdomen series, 10/15/2024 Clinical Data: Constipation Comparison: None. Findings: In the chest there are no nodules, masses or effusions. The heart is enlarged. The pulmonary vascularity is not increased. The aortic arch is mildly tortuous. No free air is seen beneath the diaphragms. No abnormal intra-abdominal masses or calcifications are seen. There is a large amount of fecal material throughout the colon. There is a right lateral abdominal bulge which may represent a lateral ventral hernia. No obstruction is noted. There is degenerative change of the thoracic and lumbar vertebral bodies. XR/XR acute abdomen series 20348 Impression: 1. Cardiomegaly and atherosclerosis. 2. Large amount of fecal material in the colon. 3. Right lateral abdominal bulging.
[2024-10-15 12:08] LABS: Alanine Aminotransferase 15 U/L (0-33); Albumin Level 4.0 g/dL (3.5-5.2); Alkaline Phosphatase 96 U/L (35-105); Anion Gap 15.8 (5-19); Aspartate Amino Transferase 17 U/L (0-32); Blood Urea Nitrogen 7 mg/dL (6-20); Calcium 9.9 mg/dL (8.5-10.5); Carbon Dioxide 25 mmol/L (22-29); Chloride 103 mmol/L (98-107); Creatinine Clr Calc Pharmacy 106.8704; Globulin 3.3 g/dL (1.3-4.6); Glucose 116 mg/dL (65-115); Lipase 20 U/L (13-60); Osmolality Calculated 289 mOsm/kg (285-295); Potassium 3.8 mmol/L (3.5-5.1); Sodium 140 mmol/L (136-145); Total Protein 7.3 g/dL (6.6-8.7)
[2024-10-15 13:00] LABS: Glucose Urine UA Negative (Normal); Nitrate Urine Negative (Negative); Specific Gravity, Urine 1.022 (1.005-1.030)
[2024-10-15 13:28] VITALS: BP 146/89; PULSE 95; O2SAT 93
[2024-10-15 13:35] VITALS: BP 146/89; PULSE 91; O2SAT 95
== END 2024-10-15 13:38 | disposition home or self-care (01) ==
PROVIDERS: Emergency Medicine; Emergency Provider Family Medicine; PCP Family Medicine
DX: K59.00 Constipation, unspecified (principal); N30.90 Cystitis, unspecified without hematuria; Z79.84 Long term (current) use of oral hypoglycemic drugs; E78.5 Hyperlipidemia, unspecified
CPT/HCPCS: 36415; 51798; 74022; 80053; 81001; 83690; 85025; 87086; 99284

== ENCOUNTER → 2024-10-22 15:14 | Outpatient (BNVA) | payer OTHER, SELFPAY ==
[2024-09-23 15:12] VITALS: BP 132/83
[2024-09-23 15:16] VITALS: BMI 41.3
== END ==
PROVIDERS: PCP Family Medicine; Visit Provider Nurse Practitioner Psychiatric/Mental Health
DX: F20.0 Paranoid schizophrenia (principal); Z79.899 Other long term (current) drug therapy
CPT/HCPCS: 85007; 85027

== ENCOUNTER → 2024-10-29 14:23 | Outpatient (BNVA) | payer OTHER, SELFPAY ==
[2024-09-23 15:12] VITALS: BP 132/83
[2024-09-23 15:16] VITALS: BMI 41.3
== END ==
PROVIDERS: PCP Family Medicine; Visit Provider Nurse Practitioner Psychiatric/Mental Health
DX: F20.0 Paranoid schizophrenia (principal); Z79.899 Other long term (current) drug therapy
CPT/HCPCS: 85007; 85027

== ENCOUNTER → 2024-11-05 15:15 | Outpatient (BNVA) | payer SELFPAY ==
[2024-09-23 15:12] VITALS: BP 132/83
[2024-09-23 15:16] VITALS: BMI 41.3
== END ==
PROVIDERS: PCP Family Medicine; Visit Provider Nurse Practitioner Psychiatric/Mental Health
DX: F20.0 Paranoid schizophrenia (principal); Z79.899 Other long term (current) drug therapy
CPT/HCPCS: 85007; 85027

== ENCOUNTER → 2024-11-12 14:42 | Outpatient (BNVA) | payer SELFPAY ==
[2024-09-23 15:12] VITALS: BP 132/83
[2024-09-23 15:16] VITALS: BMI 41.3
== END ==
PROVIDERS: PCP Family Medicine; Visit Provider Nurse Practitioner Psychiatric/Mental Health
DX: F20.0 Paranoid schizophrenia (principal); Z79.899 Other long term (current) drug therapy
CPT/HCPCS: 85007; 85027

== ENCOUNTER → 2024-11-19 12:30 | Outpatient (BNVA) | payer OTHER, SELFPAY ==
[2024-09-23 15:12] VITALS: BP 132/83
[2024-09-23 15:16] VITALS: BMI 41.3
== END ==
PROVIDERS: PCP Family Medicine; Visit Provider Nurse Practitioner Psychiatric/Mental Health
DX: F20.0 Paranoid schizophrenia (principal); Z79.899 Other long term (current) drug therapy
CPT/HCPCS: 85007; 85027

== ENCOUNTER → 2024-11-26 10:46 | Outpatient (BNVA) | payer SELFPAY ==
[2024-09-23 15:12] VITALS: BP 132/83
[2024-09-23 15:16] VITALS: BMI 41.3
== END ==
PROVIDERS: PCP Family Medicine; Visit Provider Nurse Practitioner Psychiatric/Mental Health
DX: F20.0 Paranoid schizophrenia (principal); Z79.899 Other long term (current) drug therapy
CPT/HCPCS: 85007; 85027

== ENCOUNTER → 2024-12-04 10:15 | Outpatient (BNVA) | payer OTHER, SELFPAY ==
[2024-09-23 15:12] VITALS: BP 132/83
[2024-09-23 15:16] VITALS: BMI 41.3
== END ==
PROVIDERS: PCP Family Medicine; Visit Provider Nurse Practitioner Psychiatric/Mental Health
DX: F20.0 Paranoid schizophrenia (principal); Z79.899 Other long term (current) drug therapy
CPT/HCPCS: 85007; 85027

== ENCOUNTER → 2024-12-10 09:28 | Outpatient (BNVA) | payer OTHER, SELFPAY ==
[2024-09-23 15:12] VITALS: BP 132/83
[2024-09-23 15:16] VITALS: BMI 41.3
== END ==
PROVIDERS: PCP Family Medicine; Visit Provider Nurse Practitioner Psychiatric/Mental Health
DX: F20.0 Paranoid schizophrenia (principal); Z79.899 Other long term (current) drug therapy
CPT/HCPCS: 85007; 85027